=== PATIENT | male | born 1935 | race Caucasian/White ===

== ENCOUNTER 2016-12-15 12:03 | Inpatient (IN) ==
--- NOTE | 2016-12-15 13:34 | Emergency Department Note ---
Arrival - Arrival Chief Complaint: Extremity Injury Stated Complaint: LAC TO LEFT LEG ED Nursing Triage Note: States his left left hit a door resulting in a laceration on Wednesday. States family tried steri-stips and liquid bandage at home. States it does not look like it is healing and has adhesive is still in wound. [facility] sent pt to ED. Mode of Arrival: Wheelchair Limitations: No Limitations Source: Patient Time Seen by Provider: 12/15/16 13:19 - History of Present Illness HPI Narrative: This is an 81-year-old white male who states he hit his left leg on a door last Wednesday, and sustained a laceration to his left lower leg. He states that his family who were first responders put Steri-Strips on it and put and adhesive onto it and got adhesive down into the wound. He states that today it is not healing is very painful and red. He was seen at the [facility] and the [facility] clinic sent him to the emergency department. Onset (ago): day(s) (4) Severity: moderate Allergies/Adverse Reactions: Allergies Allergy/AdvReac Type Severity Reaction Status Date / Time Unable to Obtain Allergy Unverified 12/15/16 12:37 Home Medications: Home Medications Medication Instructions Recorded Confirmed Type Aspirin EC Tab 81 mg PO DAILY 12/15/16 12/15/16 History Atorvastatin Calcium 20 mg PO DAILY 12/15/16 12/15/16 History Cetirizine HCl [Cetirizine Tab] 10 mg PO DAILY PRN 12/15/16 12/15/16 History Ferrous Sulfate 325 mg PO DAILY 12/15/16 12/15/16 History Finasteride 5 mg PO DAILY 12/15/16 12/15/16 History Gabapentin 300 mg PO TID 12/15/16 12/15/16 History Hydroxychloroquine Sulfate 200 mg PO BID 12/15/16 12/15/16 History Metoprolol Tartrate 100 mg PO BID 12/15/16 12/15/16 History Niacin 1,000 mg PO QPM 12/15/16 12/15/16 History Omeprazole [Prilosec] 20 mg PO BID 12/15/16 12/15/16 History Oxybutynin Chloride [Oxybutynin 15 mg PO DAILY 12/15/16 12/15/16 History Chloride ER] Potassium Chloride 20 meq PO BID 12/15/16 12/15/16 History Tamsulosin [Flomax] 0.4 mg PO DAILY 12/15/16 12/15/16 History Verapamil HCl [Verapamil ER Tab] 240 mg PO DAILY 12/15/16 12/15/16 History metOLazone [Metolazone] 5 mg PO DAILY 12/15/16 12/15/16 History predniSONE TAB [PredniSONE] 4 mg PO DAILY 12/15/16 12/15/16 History Review of System - Review of System 12 point system: reviewed and no additional remarkable complaints except as stated - Review of System Constitutional: Present: as per HPI. Absent: fever Skin: Present: as per HPI, other (open laceration) Medical,Surgical,& Family Hx - Medical History Cardio: History of: Hypertension Endocrine: History of: Dyslipidemia Rheumatology: History of;: Rheumatoid Arthritis (Pt in personal power chair) Musculoskeletal: History of: Osteoporosis - Surgical History Cardiac Surgeries: Sugical HX of: Cardiac Catheterization (One stent per Dr Rock ) - Social History Smoking Status: Unknown if ever smoked Frequency of Alcohol Use: Unknown Type of Drug Use: Unknown Exam Vital Signs: Vital Signs Temperature 98.5 F 12/15/16 12:42 Pulse Rate 65 12/15/16 12:42 Respiratory Rate 18 12/15/16 12:42 Blood Pressure 123/69 12/15/16 12:42 O2 Sat by Pulse Oximetry 96 12/15/16 12:27 - General General appearance: in distress (mild) - Head Head exam: Present: atraumatic, normocephalic, normal inspection - Eye Eye exam: Present: normal appearance, PERRL, EOMI - ENT ENT exam: Present: normal exam - Neck Neck exam: Present: normal inspection, full ROM, trachea midline - Chest Chest inspection: Present: normal inspection, symmetric chest wall rise - Respiratory Respiratory exam: Present: normal lung sounds bilaterally - Cardiovascular Cardiovascular exam: Present: regular rate, normal rhythm, normal heart sounds - Abdominal Exam Abdominal exam: Present: soft, normal bowel sounds - Extremities Exam Extremities exam: Absent: normal inspection (the patient has an open 7-8 cm laceration to the left anterior leg with an associated cellulitis) - Back Exam Back exam: Present: normal inspection - Neurological Exam Neurological exam: Present: alert, oriented X3 - Psychiatric Psychiatric exam: Present: normal affect - Skin Skin exam: Present: warm, dry, intact Course - Consultations Consultation #1: I spoke with Dr. Woods about the patient and he will come down and see the patient and his ER room Time: 13:32 (Dr. Mccarty will take the patient to surgery and clean the wound out and admit him) Disposition Clinical Impression: Cellulitis, Laceration Case discussed with: patient Disposition: Still a Patient Time of Disposition: 13:45
[2016-12-15] MEDS ORDERED: ONDANSETRON 4 MG/2 ML VIAL IV PRN (13:47)
[2016-12-15] MEDS ORDERED: ACETAMINOPHEN 325 MG TABLET PO PRN (13:47)
[2016-12-15] MEDS ORDERED: MORPHINE 2 MG/1 ML SYRINGE IV PRN (13:47)
[2016-12-15] MEDS ORDERED: CLINDAMYCIN INJ 50 ML IV ONE (13:52)
--- NOTE | 2016-12-15 13:54 | General Surg History&Physical ---
Assessment and Plan (1) Cellulitis Status: Acute Assessment and plan: Impression: Cellulitis and infected wound of the left lower extremity. Plan: Patient needs opening of this wound with debridement of the nonviable tissue and drainage of any underlying fluid collection. We will plan for surgery today. I discussed the risk of the procedure including bleeding, infection, damage to surrounding structures, need for further surgery and he agrees. Will admit for IV antibiotics. Current Visit: Yes (2) Laceration Status: Acute Current Visit: Yes History of Present Illness Chief complaint: left leg pain and redness History of present illness: Mr. Van is a 81 year old male injured his left leg last week. Patient states that he was in his motorized wheelchair and open the car door and accidentally moved to chair forward scraping his left lower leg into the edge of the door. He sustained a laceration. His family applied liquid Band-Aid to the incision. Last night he noticed it becoming more red and this morning sought medical treatment. He denies any fever. He denies any shortness of breath or chest pain. Home Medications Medication Instructions Recorded Confirmed Type Aspirin EC Tab 81 mg PO DAILY 12/15/16 12/15/16 History Atorvastatin Calcium 20 mg PO DAILY 12/15/16 12/15/16 History Cetirizine HCl [Cetirizine Tab] 10 mg PO DAILY PRN 12/15/16 12/15/16 History Ferrous Sulfate 325 mg PO DAILY 12/15/16 12/15/16 History Finasteride 5 mg PO DAILY 12/15/16 12/15/16 History Gabapentin 300 mg PO TID 12/15/16 12/15/16 History Hydroxychloroquine Sulfate 200 mg PO BID 12/15/16 12/15/16 History Metoprolol Tartrate 100 mg PO BID 12/15/16 12/15/16 History Niacin 1,000 mg PO QPM 12/15/16 12/15/16 History Omeprazole [Prilosec] 20 mg PO BID 12/15/16 12/15/16 History Oxybutynin Chloride [Oxybutynin 15 mg PO DAILY 12/15/16 12/15/16 History Chloride ER] Potassium Chloride 20 meq PO BID 12/15/16 12/15/16 History Tamsulosin [Flomax] 0.4 mg PO DAILY 12/15/16 12/15/16 History Verapamil HCl [Verapamil ER Tab] 240 mg PO DAILY 12/15/16 12/15/16 History metOLazone [Metolazone] 5 mg PO DAILY 12/15/16 12/15/16 History predniSONE TAB [PredniSONE] 4 mg PO DAILY 12/15/16 12/15/16 History Allergies Allergy/AdvReac Type Severity Reaction Status Date / Time Unable to Obtain Allergy Unverified 12/15/16 12:37 Medical,Surgical,& Family Hx - Medical History Cardio: History of: Hypertension Endocrine: History of: Dyslipidemia Rheumatology: History of;: Rheumatoid Arthritis (Pt in personal power chair) Musculoskeletal: History of: Osteoporosis - Surgical History Cardiac Surgeries: Sugical HX of: Cardiac Catheterization (One stent per Dr Rock ) - Social History Smoking Status: Unknown if ever smoked Frequency of Alcohol Use: Unknown Type of Drug Use: Unknown Exam - Constitutional Vitals: Period Temp Pulse Resp BP Sys/Radford Pulse Ox Last 24 Hr 98.5 F-98.5 F 65-65 18-18 123-123/69-69 96 General appearance: no acute distress - Head Head exam: Present: normocephalic - ENT Mouth exam: Present: normal external inspection - Neck Neck exam: Present: normal inspection, trachea midline - Respiratory Respiratory exam: Present: clear to auscultation bilaterally - Cardiovascular Cardiovascular exam: Present: RRR - GI/Abdominal GI/Abdominal exam: Present: soft - Extremities Exam Extremities exam: Present: other (laceration along the left anterolateral lower leg with surrounding erythema that is nearly circumferential. There is some purulent fluid exuding from the wound base which is covered and liquid adhesive. There is nonviable tissue present.) - Neurological Exam Neurological exam: Present: alert, oriented X3 Speech: Present: normal - Skin Skin exam: Present: normal color 12 point system: reviewed and no additional remarkable complaints except as stated Quality Measures - VTE Contraindication to Pharmacological VTE Prophylaxis: High Risk of Bleeding
[2016-12-15] MEDS ORDERED: CLINDAMYCIN INJ 900 MG in PREMIX 1 EACH IV ONE (14:00)
[2016-12-15 14:41] LABS: Albumin 3.4 G/DL (3.4-5.0); Bilirubin,Total 0.8 MG/DL (0.2-1.0); Calcium 8.1 MG/DL (8.5-10.1); Osmolality,Calculated 282.4 MOS/KG (273-304); Total Protein 7.2 G/DL (6.4-8.3)
[2016-12-15] MEDS ORDERED: METOCLOPRAMIDE 10 MG/2 ML VIAL IV STA (14:54)
[2016-12-15] MEDS ORDERED: FAMOTIDINE 20 MG/2 ML VIAL IV STA (14:54)
[2016-12-15] MEDS ORDERED: METOCLOPRAMIDE 10 MG/2 ML VIAL ONE (14:59)
[2016-12-15] MEDS ORDERED: FAMOTIDINE 20 MG/2 ML VIAL IV ONE (15:00)
[2016-12-15 15:07] LABS: Basophils % 0.4 % (0.0-0.8); Eosinophils # 0.2 10*3/uL (0.0-0.87); Eosinophils % 2.2 % (0.00-10.9); Hematocrit 36.3 VOL% (42.0-52.0); Immature Granulocytes % 0.9 %; Immature Granulocytes Absolute 0.09 #; Lymphocytes # 1.5 10*3/uL (1.4-4.0); Lymphocytes % 14.2 % (21.2-54.2); Mean Corpuscular HGB Conc 33.1 GM/DL (32-36); Mean Corpuscular Hemoglobin 28 PG (27-34); Mean Platelet Volume 12.9 FL (9.6-12.0); Monocytes % 9.2 % (1.7-12.7); Neutrophils # 7.7 10*3/uL (1.4-7.4); Neutrophils % 73.1 % (38.7-73.9); Platelet Count 120 T/CUMM (130-400); Red Blood Count 4.32 MC/CUMM (3.8-5.5); Red Cell Distribution Width 13.8 % (9.3-17.3); White Blood Count 10.5 T/CUMM (4-12)
[2016-12-15] MEDS: CLINDAMYCIN INJ 900 MG in PREMIX 1 EACH IV SCH ×2 (16:32→22:35)
--- NOTE | 2016-12-15 16:39 | Operative Note ---
Date of procedure: 12/15/16 Pre-op diagnosis: traumatic infected laceration and wound of the left lower extremity Post-op diagnosis: same (with nonviable tissue) Procedure: Procedure performed: Excisional debridement of left lower leg including nonviable skin and subcutaneous tissue. Area debrided was 5 x 1.5 cm Procedure in detail: After informed consent was obtained, patient was taken operating suite and laid supine operating table. After monitored anesthesia was initiated the left lower extremity was prepped and draped in usual sterile fashion. After procedural pause local anesthetic was infiltrated in the skin and subcutaneous tissue alongside the laceration. Blunt finger dissection was used to open up the laceration and identified that it tracked laterally in the subcutaneous tissue. This pocket was opened up but there was no significant purulence. There was some old clot and nonviable skin and subcutaneous tissue which was all removed with a dermal curette. The wound was irrigated and suction there was good hemostasis. I then packed the wound with 4 x 4 gauze. Sterile dressings applied and the patient tolerated the procedure well. Anesthesia: MAC, local Surgeon / Physician: John Woods Estimated blood loss: other (less than 10 mL) Specimens: none sent Condition: stable Disposition: PACU Results - Labs CBC & BMP: 12/15/16 15:03 12/15/16 13:56 Discharge Plan - Discharge Medications No Action Hydroxychloroquine Sulfate 200 mg PO BID Tamsulosin [Flomax] 0.4 mg PO DAILY Omeprazole [Prilosec] 20 mg PO BID Verapamil HCl [Verapamil ER Tab] 240 mg PO DAILY Aspirin EC Tab 81 mg PO DAILY predniSONE TAB [PredniSONE] 4 mg PO DAILY Finasteride 5 mg PO DAILY Oxybutynin Chloride [Oxybutynin Chloride ER] 15 mg PO DAILY Cetirizine HCl [Cetirizine Tab] 10 mg PO DAILY PRN PRN Reason: ALERGIES Gabapentin 300 mg PO TID Niacin 1,000 mg PO QPM Potassium Chloride 20 meq PO BID Atorvastatin Calcium 20 mg PO DAILY metOLazone [Metolazone] 5 mg PO DAILY Metoprolol Tartrate 100 mg PO BID Ferrous Sulfate 325 mg PO DAILY - Follow Up or Referral - Forms/Instructions
[2016-12-15] MEDS ORDERED: CETIRIZINE 10 MG TABLET PO PRN (17:33)
[2016-12-15] MEDS ORDERED: TAMSULOSIN 0.4 MG CAPSULE PO SCH (19:00)
--- NOTE | 2016-12-15 20:30 | Anesthesia ---
Anesthesia Post OP - Post Ansesthetic Evaluation Patient seen in post op: Yes Resp: within normal limits CV: within normal limits Mental: within normal limits Temp: within normal limits [id number]: within normal limits Nausea and Vomiting: within normal limits Pain: within normal limits
--- NOTE | 2016-12-15 20:31 | Hospitalist Consult Note ---
Assessment and Plan (1) Hypertension Status: Chronic Assessment and plan: Continue home medications for hypertension and monitor blood pressure Current Visit: Yes Qualifiers: Hypertension type: essential hypertension Qualified Code(s): I10 - Essential (primary) hypertension (2) Osteoarthritis Status: Chronic Current Visit: Yes Qualifiers: Osteoarthritis location: multiple joints Osteoarthritis type: primary Qualified Code(s): M15.0 - Primary generalized (osteo)arthritis (3) Obesity Status: Chronic Current Visit: Yes Qualifiers: Obesity type: due to excess calories Obesity severity: morbid Qualified Code(s): E66.01 - Morbid (severe) obesity due to excess calories (4) Cellulitis Status: Acute Assessment and plan: Continue IV antibiotics per surgery. Currently on clindamycin. Current Visit: Yes Qualifiers: Site of cellulitis: extremity Site of cellulitis of extremity: lower extremity Laterality: left Qualified Code(s): L03.116 - Cellulitis of left lower limb (5) Laceration Status: Acute Assessment and plan: Status post surgical debridement. Wound dressing changes per surgery. Continue IV antibiotics. Current Visit: Yes History of Present Illness - Data of Consult Patient: new to practice Consult date: 12/15/16 Requesting Physician: John Woods - Consult Narrative Reason for consult: medical mgmt htn History of present illness: Mr. Van is a 81 year old male admitted this afternoon from the emergency department with left lower extremity laceration with cellulitis requiring debridement in the operating room and IV antibiotics. Patient reports sustaining a laceration to his leg caused by a car door due to malfunction with his wheelchair. It was covered with Steri-Strips and liquid Band-Aid. This morning it became painful and red and he came to the emergency department for further evaluation. He was admitted to the general surgeon service for debridement and IV antibiotic therapy. I was consult to review the patient's medical history and resume his home medications as well as manage any medical complications related to his acute illness. CC: John Woods MD Left lower extremity laceration with infection and pain - Home Medications and Allergies Home Medications: Home Medications Medication Instructions Recorded Confirmed Type Aspirin EC Tab 81 mg PO DAILY 12/15/16 12/15/16 History Atorvastatin Calcium 20 mg PO DAILY 12/15/16 12/15/16 History Cetirizine HCl [Cetirizine Tab] 10 mg PO DAILY PRN 12/15/16 12/15/16 History Ferrous Sulfate 325 mg PO DAILY 12/15/16 12/15/16 History Finasteride 5 mg PO DAILY 12/15/16 12/15/16 History Gabapentin 300 mg PO TID 12/15/16 12/15/16 History Hydroxychloroquine Sulfate 200 mg PO BID 12/15/16 12/15/16 History Metoprolol Tartrate 100 mg PO BID 12/15/16 12/15/16 History Omeprazole [Prilosec] 20 mg PO BID 12/15/16 12/15/16 History Oxybutynin Chloride [Oxybutynin 15 mg PO DAILY 12/15/16 12/15/16 History Chloride ER] Potassium Chloride 20 meq PO BID 12/15/16 12/15/16 History Tamsulosin [Flomax] 0.4 mg PO QPM 12/15/16 12/15/16 History Verapamil HCl [Verapamil ER Tab] 240 mg PO DAILY 12/15/16 12/15/16 History metOLazone [Metolazone] 5 mg PO DAILY 12/15/16 12/15/16 History predniSONE TAB [PredniSONE] 4 mg PO DAILY 12/15/16 12/15/16 History Allergies/Adverse Reactions: Allergies Allergy/AdvReac Type Severity Reaction Status Date / Time codeine Allergy Mild RASH Verified 12/15/16 20:32 gemfibrozil Allergy Mild Difficulty Verified 12/15/16 20:32 Breathing Medical,Surgical,& Family Hx - Medical History Cardio: History of: CAD, Hypertension, Valvular Heart Disease Endocrine: History of: Dyslipidemia Rheumatology: History of;: Rheumatoid Arthritis (Pt in personal power chair) Respiratory: History of: Obstructive Sleep Apnea (Cpap) Musculoskeletal: History of: Osteoporosis Hematology: History of: Clotting Problems (DVT) - Surgical History Cardiac Surgeries: Sugical HX of: Cardiac Catheterization (One stent per Dr Rock ) HEENT Surgeries: Surgical HX of: Eye Surgery (bilateral cataracts) Orthopedic Surgeries: Surgical HX of;: Orthopedic Surgery (Bilateral shoulder), Spinal Surgery (neck and lower back), Total Knee Replacement (right) - Family History Family History: Reports;: Family Heart Disease (parents), Family Hypertension, Family Stroke (grandfather) - Social History Smoking Status: Never smoker Frequency of Alcohol Use: None Type of Drug Use: Unknown 12 point system: reviewed and no additional remarkable complaints except as stated - Constitutional Constitutional: Present: as per HPI Exam - Constitutional Vitals: Period Temp Pulse Resp BP Sys/Radford Pulse Ox Last 24 Hr 97.0 F-97.4 F 56-78 16-59 94-133/49-79 91-100 General appearance: no acute distress, morbidly obese - Head Head exam: Present: normal inspection, normocephalic, atraumatic - Eye Eye exam: Present: EOMI Pupils: Present: JOSIE - ENT ENT exam: Present: normal exam - Neck Neck exam: Present: normal inspection - Respiratory Respiratory exam: Present: clear to auscultation bilaterally - Cardiovascular Cardiovascular exam: Present: regular rate and rhythm - GI/Abdominal GI/Abdominal exam: Present: normal bowel sounds, soft - Extremities Exam Extremities exam: Present: edema, other (left lower extremity with bandage in place with serosanguineous drainage noted. Bandage was not removed postoperatively by me.) - Back Exam Back exam: Present: normal inspection - Neurological Exam Neurological exam: Present: alert, oriented X3 - Psychiatric Psychiatric exam: Present: normal affect, normal mood - Skin Skin exam: Present: normal color, warm Results - Labs CBC & BMP: 12/15/16 15:03 12/15/16 13:56 Lab Results: I have reviewed the past 24 hour labs Quality Measures - VTE Contraindication to Pharmacological VTE Prophylaxis: High Risk of Bleeding
[2016-12-15] MEDS: GABAPENTIN 300 MG CAPSULE PO SCH (21:15)
[2016-12-15] MEDS: HYDROXYCHLOROQUINE 200 MG TABLET PO SCH (21:15)
[2016-12-15] MEDS: METOPROLOL TARTRATE 100 MG TABLET PO SCH (21:15)
[2016-12-15] MEDS: POTASSIUM CHLORIDE 20 MEQ TABLET PO SCH (21:15)
[2016-12-16] MEDS: CLINDAMYCIN INJ 900 MG in PREMIX 1 EACH IV SCH ×2 (03:47→10:08)
[2016-12-16 05:03] LABS: Basophils % 0.3 % (0.0-0.8); Eosinophils # 0.2 10*3/uL (0.0-0.87); Eosinophils % 2.3 % (0.00-10.9); Hematocrit 30.3 VOL% (42.0-52.0); Hemoglobin 10.1 GM/DL (14.0-18.0); Immature Granulocytes % 0.5 %; Immature Granulocytes Absolute 0.04 #; Lymphocytes # 1.2 10*3/uL (1.4-4.0); Lymphocytes % 14.9 % (21.2-54.2); Mean Corpuscular HGB Conc 33.3 GM/DL (32-36); Mean Corpuscular Hemoglobin 28 PG (27-34); Monocytes # 0.8 10*3/uL (0.11-0.8); Monocytes % 10.5 % (1.7-12.7); Neutrophils # 5.7 10*3/uL (1.4-7.4); Neutrophils % 71.5 % (38.7-73.9); Platelet Count 182 T/CUMM (130-400); Red Blood Count 3.65 MC/CUMM (3.8-5.5); Red Cell Distribution Width 13.9 % (9.3-17.3)
[2016-12-16] MEDS ORDERED: FINASTERIDE 5 MG TABLET PO SCH (09:00)
[2016-12-16] MEDS ORDERED: predniSONE 1 MG TABLET PO SCH (09:00)
[2016-12-16] MEDS ORDERED: VERAPAMIL SR 240 MG TABLET PO SCH (09:00)
[2016-12-16] MEDS ORDERED: ASPIRIN EC 81 MG TABLET PO SCH (09:00)
[2016-12-16] MEDS ORDERED: metOLazone 5 MG TABLET PO SCH (09:00)
[2016-12-16] MEDS ORDERED: FERROUS SULFATE 325 MG TABLET PO SCH (09:00)
[2016-12-16] MEDS: METOPROLOL TARTRATE 100 MG TABLET PO SCH (10:04)
[2016-12-16] MEDS: POTASSIUM CHLORIDE 20 MEQ TABLET PO SCH (10:04)
[2016-12-16] MEDS: GABAPENTIN 300 MG CAPSULE PO SCH (10:04)
--- NOTE | 2016-12-16 10:04 | Discharge Summary ---
Hospital Course - Hospital Course Hospital Course: 81[address] earl w traumatic infected laceration and wound of the LLE. he was taken to the OR on 12/15 for excisional debridement. redness is improved today and wound is fairly clean. pt and are eager to go home. hospital medicine followed pt for his medical mgt. will write wound orders and dc pt home on abx and pain meds. wound instructions were given to pt and his and he states his sons are first responders and can do dressing changes. follow up w dr earl next wk. - Time spent with patient Time with patient DS: Less than 30 minutes Discharge Plan - Discharge Data Disposition: Disch To Home/Self Care Condition at Discharge: Stable Discharge Diet: advance to your usual diet Activity: increase activity as tolerated Hygiene: may shower Driving: other (no driving if taking pain pills) Contact your physician if you experience:: fever over 101, Redness or swelling Wound / Dressing Care Instructions: pull packing and shower daily. wash wound w hibiclens and rinse w water, irrigate w dakins and pack w dakins moistened gauze to distal wound, proximal wound will need 1/4inch iodoform packing. cover w dry gauze, ABD pad, kerlix and adis from toes to knee. - Discharge Medications New HYDROcodone/ACETAMIN 7.5-325 [[place] 7.5-325] 1 tablet PO Q4H PRN #30 tablet PRN Reason: Pain Moderate (4-7) Clindamycin Cap [Cleocin Cap] 300 mg PO QID #28 capsule Continue Hydroxychloroquine Sulfate 200 mg PO BID Tamsulosin [Flomax] 0.4 mg PO QPM Omeprazole [Prilosec] 20 mg PO BID Verapamil HCl [Verapamil ER Tab] 240 mg PO DAILY Aspirin EC Tab 81 mg PO DAILY predniSONE TAB [PredniSONE] 4 mg PO DAILY Finasteride 5 mg PO DAILY Oxybutynin Chloride [Oxybutynin Chloride ER] 15 mg PO DAILY Cetirizine HCl [Cetirizine Tab] 10 mg PO DAILY PRN PRN Reason: ALERGIES Gabapentin 300 mg PO TID Potassium Chloride 20 meq PO BID Atorvastatin Calcium 20 mg PO DAILY metOLazone [Metolazone] 5 mg PO DAILY Metoprolol Tartrate 100 mg PO BID Ferrous Sulfate 325 mg PO DAILY - Follow Up or Referral Follow Up: John Earl MD [Physician] - 1 Week - Forms/Instructions Exam - Constitutional Vitals: Period Temp Pulse Resp BP Sys/Radford Pulse Ox Last 24 Hr 97.0 F-98.1 F 56-84 16-59 94-133/49-79 91-100 Discharge Results Procedures and tests throughout hospitalization: Pending Orders 12/15/16 13:56 Blood Culture Stat Labs on day of discharge: Labs from last 24 hours 12/16/16 12/15/16 12/15/16 04:40 15:03 13:56 WBC 8.0 10.5 RBC 3.65 L 4.32 Hgb 10.1 L 12.0 L Hct 30.3 L 36.3 L MCV 83.0 L 84.0 L MCH 28 28 MCHC 33.3 33.1 RDW 13.9 13.8 Plt Count 182 D 120 L MPV 10.0 12.9 H Neut % (Auto) 71.5 73.1 Lymph % (Auto) 14.9 L 14.2 L [place] % (Auto) 10.5 9.2 Eos % (Auto) 2.3 2.2 Baso % (Auto) 0.3 0.4 Neut # (Auto) 5.7 7.7 H Lymph # (Auto) 1.2 L 1.5 [place] # (Auto) 0.8 1.0 H Eos # (Auto) 0.2 0.2 Baso # (Auto) 0.0 0.0 Immature Gran % 0.5 0.9 Nucleated RBC % 0.0 0.0 Immature Gran # 0.04 0.09 Nucleated RBCs # 0.00 0.00 Sodium 140 Potassium 4.0 Chloride 103 Carbon Dioxide 29 Anion Gap 12.0 BUN 24 H Creatinine 2.00 H GFR Calculation 41 BUN/Creatinine Ratio 12.00 Glucose 95 Calculated Osmolality 282.4 Calcium 8.1 L Total Bilirubin 0.80 AST 19 ALT 21 Alkaline Phosphatase 86 Total Protein 7.2 Albumin 3.4 Globulin 3.8 H Albumin/Globulin Ratio 0.8 L DS: Provider Date of admission: 12/15/16 13:47 Primary care physician: Fernando Rodrigues MD Attending physician on admission: John Earl MD Consults: 12/15/16 16:00 Consult to Pharmacy [CONS] Routine Reason for Pharmacy Consult: Adjust Meds Renal Funct 12/15/16 16:52 Consult to Physician [CONS] Routine Comment: medical materials management supervisor Provider: Consult to Specialist Group: Hospitalist Person Notified: DR MICHELLE Date Notified: 12/15/16 Time Notified: 16:52 Discharging clinician: ALEKSANDR Pena Expected date of discharge: 12/16/16
[2016-12-16] MEDS: HYDROXYCHLOROQUINE 200 MG TABLET PO SCH (10:09)
[2016-12-16] MEDS ORDERED: SODIUM HYPOCHLORITE 0.25% IRRIG 473 ML BOTTLE TOP SCH (12:30)
--- NOTE | 2016-12-16 13:51 | General Surgery Progress Note ---
Assessment and Plan (1) Cellulitis Status: Acute Assessment and plan: Impression: Cellulitis and infected wound of the left lower extremity. Plan: Discharge today. Patient will follow up next week. Says his family will help him with packing. Discharge and wound care instructions were given. Current Visit: Yes Qualifiers: Site of cellulitis: extremity Site of cellulitis of extremity: lower extremity Laterality: left Qualified Code(s): L03.116 - Cellulitis of left lower limb (2) Laceration Status: Acute Current Visit: Yes Subjective Patient reports: Present: no new complaints, feels better Exam - Constitutional Vitals: Period Temp Pulse Resp BP Sys/[place]ford Pulse Ox Last 24 Hr 97.0 F-98.1 F 56-84 16-59 94-133/49-79 91-100 - Extremities Exam Extremities exam: Present: other (packing removed. A left leg wound looks clean. It no bleeding. There is no purulence or nonviable tissue. Erythema has nearly completely resolved.) Results - Labs CBC & BMP: 12/16/16 04:40 12/15/16 13:56 Quality Measures - VTE Contraindication to Pharmacological VTE Prophylaxis: High Risk of Bleeding Specialty Discharge - Follow Up or Referrals Follow up with: John Woods MD [Physician] - 12/23/16 10:30 am
[2016-12-16 16:20] VITALS: BP 157/76
[2016-12-16] MEDS ORDERED: ATORVASTATIN 20 MG TABLET PO SCH (21:00)
[2016-12-16] MEDS ORDERED: OXYBUTYNIN XL 15 MG TABLET PO SCH (21:00)
[2016-12-16] MEDS ORDERED: PANTOPRAZOLE 40 MG TABLET PO SCH (21:00)
== END 2016-12-16 14:40 | disposition home health service (06) | DRG 571 ==
LOC: N.ED 12:03 → N.EDINP 13:47 → N.3E 15:10
PROVIDERS: ADMIT Surgery; ATTEND Surgery

== ENCOUNTER 2019-10-14 08:25 | Inpatient (IN) ==
[2019-10-14] MEDS ORDERED: NOREPINEPHRINE 4 MG/4 ML VIAL IV ONE ×2 (08:33→15:41)
[2019-10-14] MEDS: NOREPINEPHRINE 8 MG in SODIUM CHLORIDE 0.9% 242 ML IV PRN ×2 (08:35→15:48)
[2019-10-14] MEDS ORDERED: VANCOMYCIN INJ 1,500 MG in SODIUM CHLORIDE 0.9% 500 ML IV STA (08:39)
[2019-10-14] MEDS ORDERED: NOREPINEPHRINE 16 MG in SODIUM CHLORIDE 0.9% 234 ML IV PRN (08:50)
[2019-10-14 09:14] LABS: Basophils # 0.1 10*3/uL (0.0-0.2); Basophils % 0.2 % (0.0-0.8); Hematocrit 27.1 VOL% (42.0-52.0); Hemoglobin 8.8 GM/DL (14.0-18.0); INR 1.2; Immature Granulocytes % 1.9 %; Immature Granulocytes Absolute 0.68 #; Lymphocytes # 0.6 10*3/uL (1.4-4.0); Lymphocytes % 1.7 % (21.2-54.2); Mean Corpuscular HGB Conc 32.5 GM/DL (32-36); Mean Corpuscular Volume 85.5 FL (87-102); Mean Platelet Volume 9.8 FL (9.6-12.0); Monocytes % 3.6 % (1.7-12.7); Neutrophils % 92.6 % (38.7-73.9); Platelet Count 199 T/CUMM (130-400); Red Blood Count 3.17 MC/CUMM (3.8-5.5); Red Cell Distribution Width 15.4 % (9.3-17.3); White Blood Count 36.4 T/CUMM (4-12)
[2019-10-14 09:17] LABS: PT Patient Result 12.9 SECS (9.6-12.2)
[2019-10-14 09:18] LABS: Band Neutrophils 42 % (0-10); Lymphocytes 2 % (20-55); Segmented Neutrophils 51 % (50-85); Total Cells Counted 100
[2019-10-14 09:19] LABS: Anisocytosis 1+; Platelet Estimate Normal; Poikilocytosis 1+; Polychromasia Slight
[2019-10-14 09:21] LABS: ABG HCO3 16.4 MMOL/L (20-26); ABG Oxygen Saturation 92.6 % (95-100); ABG PCO2 35.6 MM HG (35-48); ABG PH 7.267 (7.35-7.45); ABG PO2 75.3 MM HG (80-95); ABG TCO2 15.2 MMOL/L (23-27); Allen Test Positive
[2019-10-14 09:39] LABS: Albumin 1.9 G/DL (3.4-5.0); Bilirubin,Total 1.2 MG/DL (0.2-1.0); Calcium 7.2 MG/DL (8.5-10.1); Osmolality,Calculated 315.3 MOS/KG (273-304); Total Protein 6.6 G/DL (6.4-8.3)
[2019-10-14 09:41] LABS: Apearance,Urine CLOUDY (Clear); Bacteria,Urine Occasional /HPF (Few); Bilirubin,Urine Negative (Negative); Blood, Urine Moderate mg/dL (Negative); Glucose,Urine (UA) Negative (Negative); Ketones,Urine Negative (Negative); Mucus,Urine Moderate /LPF (Occasional); Nitrite,Urine Negative (Negative); Protein,Urine 100 MG/DL; RBC,Urine 120 /HPF (0-4); Squamous Epithelial Cell,Urine Occasional /HPF (0-10); Urine Color Yellow (Yellow); Urine Specific Gravity 1.008 (1.001-1.035); Urine Urobilinogen < 2.0 EU/DL (0.2-1.0); WBC,Urine 2828 /HPF (0-6)
[2019-10-14] MEDS ORDERED: ONDANSETRON 4 MG/2 ML VIAL IV PRN (09:43)
[2019-10-14] MEDS ORDERED: ALBUTEROL/IPRATROPIUM 3 ML NEB RESP TX PRN (09:48)
[2019-10-14] MEDS ORDERED: BUDESONIDE 0.5 MG/2 ML NEB RESP TX PRN (10:40)
[2019-10-14] MEDS ORDERED: VANCOMYCIN INJ 1,750 MG in SODIUM CHLORIDE 0.9% 500 ML IV PRN (10:54)
[2019-10-14] MEDS: SODIUM CHLORIDE 0.9% 1,000 ML IV SCH ×2 (11:21→21:15)
[2019-10-14] MEDS: PIPERACILLIN/TAZOBACTAM 3,375 MG in SODIUM CHLORIDE 0.9% 100 ML IV SCH ×2 (11:32→23:44)
[2019-10-14] MEDS: ENOXAPARIN 30 MG/0.3 ML SYRINGE SUBCUT SCH (11:32)
[2019-10-14] MEDS: DOCUSATE SODIUM 100 MG CAPSULE PO SCH (21:14)
[2019-10-15] MEDS: NOREPINEPHRINE 8 MG in SODIUM CHLORIDE 0.9% 242 ML IV PRN (01:32)
[2019-10-15] MEDS: SODIUM CHLORIDE 0.9% 1,000 ML IV SCH ×3 (04:50→20:16)
[2019-10-15 06:06] LABS: Basophils # 0.1 10*3/uL (0.0-0.2); Basophils % 0.2 % (0.0-0.8); Hematocrit 27.9 VOL% (42.0-52.0); Hemoglobin 9.1 GM/DL (14.0-18.0); Immature Granulocytes Absolute 0.74 #; Lymphocytes # 0.8 10*3/uL (1.4-4.0); Lymphocytes % 2.1 % (21.2-54.2); Mean Corpuscular HGB Conc 32.6 GM/DL (32-36); Mean Platelet Volume 10.7 FL (9.6-12.0); Monocytes % 4.3 % (1.7-12.7); Neutrophils % 91.4 % (38.7-73.9); Platelet Count 213 T/CUMM (130-400); Red Blood Count 3.32 MC/CUMM (3.8-5.5); Red Cell Distribution Width 15.7 % (9.3-17.3); White Blood Count 36.3 T/CUMM (4-12)
[2019-10-15 06:23] LABS: Calcium 7.5 MG/DL (8.5-10.1); Osmolality,Calculated 328.3 MOS/KG (273-304)
[2019-10-15 06:27] LABS: Band Neutrophils 19 % (0-10); Lymphocytes 3 % (20-55); Segmented Neutrophils 72 % (50-85); Total Cells Counted 100
[2019-10-15 06:28] LABS: Anisocytosis 1+; Burr Cells Few; Platelet Estimate Normal; Poikilocytosis Slight
[2019-10-15 06:29] LABS: Spherocytes Few
[2019-10-15] MEDS ORDERED: VANCOMYCIN INJ 1,750 MG in SODIUM CHLORIDE 0.9% 500 ML IV PRN (08:59)
[2019-10-15] MEDS: DOCUSATE SODIUM 100 MG CAPSULE PO SCH ×2 (09:22→21:00)
[2019-10-15] MEDS ORDERED: VANCOMYCIN INJ 1,750 MG in SODIUM CHLORIDE 0.9% 500 ML IV ONE (10:00)
[2019-10-15] MEDS: PANTOPRAZOLE 40 MG VIAL IV SCH (11:10)
[2019-10-15] MEDS: PIPERACILLIN/TAZOBACTAM 3,375 MG in SODIUM CHLORIDE 0.9% 100 ML IV SCH (11:11)
[2019-10-15] MEDS: ENOXAPARIN 30 MG/0.3 ML SYRINGE SUBCUT SCH (11:11)
[2019-10-15] MEDS ORDERED: MEROPENEM 2,000 MG in SODIUM CHLORIDE 0.9% 100 ML IV SCH (14:30)
[2019-10-15] MEDS: MEROPENEM 500 MG in SODIUM CHLORIDE 0.9% 100 ML IV SCH (14:58)
[2019-10-15] MEDS ORDERED: KETOROLAC 15 MG/1 ML VIAL IV ONE (20:49)
[2019-10-16] MEDS: MEROPENEM 500 MG in SODIUM CHLORIDE 0.9% 100 ML IV SCH ×2 (03:17→16:47)
[2019-10-16 04:56] LABS: Basophils % 0.2 % (0.0-0.8); Eosinophils # 0.1 10*3/uL (0.0-0.87); Eosinophils % 0.4 % (0.00-10.9); Hematocrit 23.9 VOL% (42.0-52.0); Hemoglobin 7.6 GM/DL (14.0-18.0); Immature Granulocytes % 1.9 %; Immature Granulocytes Absolute 0.42 #; Lymphocytes # 1.1 10*3/uL (1.4-4.0); Lymphocytes % 5.1 % (21.2-54.2); Mean Corpuscular HGB Conc 31.8 GM/DL (32-36); Mean Corpuscular Volume 86.3 FL (87-102); Mean Platelet Volume 10.3 FL (9.6-12.0); Monocytes % 6.8 % (1.7-12.7); Neutrophils % 85.6 % (38.7-73.9); Platelet Count 179 T/CUMM (130-400); Red Blood Count 2.77 MC/CUMM (3.8-5.5); Red Cell Distribution Width 15.8 % (9.3-17.3); White Blood Count 22.2 T/CUMM (4-12)
[2019-10-16 05:08] LABS: Calcium 7.1 MG/DL (8.5-10.1); Osmolality,Calculated 324.6 MOS/KG (273-304)
[2019-10-16 05:16] LABS: Band Neutrophils 3 % (0-10); Burr Cells Slight; Hypochromasia 1+; Lymphocytes 5 % (20-55); Ovalocytes Slight; Platelet Estimate Adequate; Segmented Neutrophils 88 % (50-85); Total Cells Counted 100
[2019-10-16] MEDS: SODIUM CHLORIDE 0.9% 1,000 ML IV SCH ×4 (05:41→21:13)
[2019-10-16] MEDS ORDERED: SODIUM CHLORIDE 0.9% 1,000 ML IV PRN (06:59)
[2019-10-16] MEDS ORDERED: FUROSEMIDE 40 MG/4 ML VIAL IV ONE (07:01)
[2019-10-16] MEDS: DOCUSATE SODIUM 100 MG CAPSULE PO SCH ×2 (08:23→21:14)
[2019-10-16] MEDS: PANTOPRAZOLE 40 MG VIAL IV SCH (08:23)
[2019-10-16] MEDS: ENOXAPARIN 30 MG/0.3 ML SYRINGE SUBCUT SCH (11:27)
[2019-10-16 18:21] LABS: Hematocrit 31.3 VOL% (42.0-52.0); Hemoglobin 10.3 GM/DL (14.0-18.0)
[2019-10-16] MEDS ORDERED: VANCOMYCIN INJ 1,750 MG in SODIUM CHLORIDE 0.9% 500 ML IV ONE (21:00)
[2019-10-16] MEDS: MENTHOL/ZINC OXIDE OINT 71 GM JAR TOP SCH (21:14)
[2019-10-16] MEDS: POTASSIUM CHLORIDE RIDER 10 MEQ in PREMIX 1 EACH IV PRN ×3 (21:29→23:29)
[2019-10-17] MEDS: POTASSIUM CHLORIDE RIDER 10 MEQ in PREMIX 1 EACH IV PRN ×2 (00:57→01:57)
[2019-10-17] MEDS: MEROPENEM 500 MG in SODIUM CHLORIDE 0.9% 100 ML IV SCH ×2 (02:51→13:59)
[2019-10-17] MEDS: SODIUM CHLORIDE 0.9% 1,000 ML IV SCH ×5 (05:15→21:20)
[2019-10-17 05:48] LABS: Basophils # 0.1 10*3/uL (0.0-0.2); Basophils % 0.4 % (0.0-0.8); Eosinophils # 0.4 10*3/uL (0.0-0.87); Eosinophils % 2.5 % (0.00-10.9); Hematocrit 30.3 VOL% (42.0-52.0); Hemoglobin 9.9 GM/DL (14.0-18.0); Immature Granulocytes Absolute 0.55 #; Lymphocytes # 1.3 10*3/uL (1.4-4.0); Lymphocytes % 9.5 % (21.2-54.2); Mean Corpuscular HGB Conc 32.7 GM/DL (32-36); Mean Corpuscular Volume 85.8 FL (87-102); Mean Platelet Volume 10.7 FL (9.6-12.0); Monocytes % 7.1 % (1.7-12.7); Neutrophils % 76.5 % (38.7-73.9); Platelet Count 179 T/CUMM (130-400); Red Blood Count 3.53 MC/CUMM (3.8-5.5); Red Cell Distribution Width 15.9 % (9.3-17.3); White Blood Count 13.7 T/CUMM (4-12)
[2019-10-17 06:13] LABS: Band Neutrophils 1 % (0-10); Eosinophils 4 % (0-10); Lymphocytes 5 % (20-55); Segmented Neutrophils 81 % (50-85); Total Cells Counted 100
[2019-10-17 06:14] LABS: Anisocytosis Slight; Microcytosis 1+; Platelet Estimate Normal
[2019-10-17 06:15] LABS: Ovalocytes Slight
[2019-10-17 06:27] LABS: Calcium 7.3 MG/DL (8.5-10.1); Osmolality,Calculated 315.8 MOS/KG (273-304)
[2019-10-17] MEDS: MENTHOL/ZINC OXIDE OINT 71 GM JAR TOP SCH ×4 (09:05→20:43)
[2019-10-17] MEDS: PANTOPRAZOLE 40 MG VIAL IV SCH (09:05)
[2019-10-17] MEDS: DOCUSATE SODIUM 100 MG CAPSULE PO SCH ×3 (09:05→20:43)
[2019-10-17] MEDS ORDERED: MAGNESIUM SULF RIDER 2 GM in PREMIX 1 EACH IV ONE (10:21)
[2019-10-17] MEDS: ENOXAPARIN 30 MG/0.3 ML SYRINGE SUBCUT SCH (11:20)
[2019-10-17] MEDS: ACETAMINOPHEN 325 MG TABLET PO PRN (17:00)
[2019-10-17] MEDS ORDERED: PIPERACILLIN/TAZOBACTAM 4,500 MG in SODIUM CHLORIDE 0.9% 100 ML IV SCH (19:30)
[2019-10-17] MEDS: PIPERACILLIN/TAZOBACTAM 3,375 MG in SODIUM CHLORIDE 0.9% 100 ML IV SCH (20:43)
[2019-10-18] MEDS: SODIUM CHLORIDE 0.9% 1,000 ML IV SCH (03:44)
[2019-10-18 05:57] LABS: Basophils # 0.1 10*3/uL (0.0-0.2); Basophils % 0.6 % (0.0-0.8); Eosinophils # 0.4 10*3/uL (0.0-0.87); Eosinophils % 3.6 % (0.00-10.9); Hematocrit 32.3 VOL% (42.0-52.0); Hemoglobin 10.6 GM/DL (14.0-18.0); Immature Granulocytes % 8.1 %; Immature Granulocytes Absolute 0.88 #; Lymphocytes # 1.4 10*3/uL (1.4-4.0); Lymphocytes % 13.2 % (21.2-54.2); Mean Corpuscular HGB Conc 32.8 GM/DL (32-36); Mean Corpuscular Volume 85.9 FL (87-102); Mean Platelet Volume 10.4 FL (9.6-12.0); Monocytes % 7.4 % (1.7-12.7); Neutrophils % 67.1 % (38.7-73.9); Platelet Count 184 T/CUMM (130-400); Red Blood Count 3.76 MC/CUMM (3.8-5.5); Red Cell Distribution Width 15.9 % (9.3-17.3); White Blood Count 10.9 T/CUMM (4-12)
[2019-10-18 06:24] LABS: Eosinophils 3 % (0-10); Hypochromasia 1+; Lymphocytes 11 % (20-55); Ovalocytes Slight; Platelet Estimate Adequate; Segmented Neutrophils 78 % (50-85); Total Cells Counted 100
[2019-10-18 06:25] LABS: Microcytosis 1+
[2019-10-18 06:32] LABS: Albumin 1.8 G/DL (3.4-5.0); Bilirubin,Total 0.7 MG/DL (0.2-1.0); Calcium 7.6 MG/DL (8.5-10.1); Osmolality,Calculated 311.8 MOS/KG (273-304); Risk Ratio 4.18
[2019-10-18] MEDS ORDERED: MAGNESIUM SULF RIDER 2 GM in PREMIX 1 EACH IV PRN (08:55)
[2019-10-18] MEDS: POTASSIUM CHLORIDE RIDER 10 MEQ in PREMIX 1 EACH IV SCH ×2 (09:53→14:33)
[2019-10-18] MEDS: PANTOPRAZOLE 40 MG VIAL IV SCH (09:53)
[2019-10-18] MEDS: DOCUSATE SODIUM 100 MG CAPSULE PO SCH ×2 (09:53→21:26)
[2019-10-18] MEDS: PIPERACILLIN/TAZOBACTAM 3,375 MG in SODIUM CHLORIDE 0.9% 100 ML IV SCH ×2 (09:53→21:24)
[2019-10-18] MEDS: MENTHOL/ZINC OXIDE OINT 71 GM JAR TOP SCH ×2 (10:12→21:26)
[2019-10-18] MEDS: MAGNESIUM SULF INJ 2 GM, POTASSIUM CHLORIDE INJ 20 MEQ in SODIUM CHLORIDE 0.9% 1,000 ML IV SCH (11:06)
[2019-10-18] MEDS: ENOXAPARIN 30 MG/0.3 ML SYRINGE SUBCUT SCH (11:12)
[2019-10-18] MEDS: GABAPENTIN 600 MG TABLET PO SCH ×2 (12:50→17:02)
[2019-10-18] MEDS: TAMSULOSIN 0.4 MG CAPSULE PO SCH (17:02)
[2019-10-18] MEDS: METOPROLOL TARTRATE 100 MG TABLET PO SCH (17:03)
[2019-10-18] MEDS: NIACIN ER 500 MG TABLET PO SCH (18:30)
[2019-10-18] MEDS: ATORVASTATIN 20 MG TABLET PO SCH (21:26)
[2019-10-19] MEDS: MAGNESIUM SULF INJ 2 GM, POTASSIUM CHLORIDE INJ 20 MEQ in SODIUM CHLORIDE 0.9% 1,000 ML IV SCH ×2 (00:23→17:53)
[2019-10-19 05:29] LABS: Basophils # 0.1 10*3/uL (0.0-0.2); Basophils % 0.6 % (0.0-0.8); Eosinophils # 0.3 10*3/uL (0.0-0.87); Hematocrit 32.5 VOL% (42.0-52.0); Hemoglobin 10.7 GM/DL (14.0-18.0); Immature Granulocytes % 7.4 %; Immature Granulocytes Absolute 0.84 #; Lymphocytes # 1.5 10*3/uL (1.4-4.0); Lymphocytes % 13.3 % (21.2-54.2); Mean Corpuscular HGB Conc 32.9 GM/DL (32-36); Mean Corpuscular Volume 84.9 FL (87-102); Mean Platelet Volume 10.5 FL (9.6-12.0); Neutrophils % 66.7 % (38.7-73.9); Platelet Count 178 T/CUMM (130-400); Red Blood Count 3.83 MC/CUMM (3.8-5.5); Red Cell Distribution Width 15.6 % (9.3-17.3); White Blood Count 11.4 T/CUMM (4-12)
[2019-10-19 05:56] LABS: Eosinophils 4 % (0-10); Hypochromasia 1+; Lymphocytes 10 % (20-55); Microcytosis 1+; Platelet Estimate Adequate; Segmented Neutrophils 77 % (50-85); Total Cells Counted 100
[2019-10-19 06:09] LABS: Albumin 1.8 G/DL (3.4-5.0); Bilirubin,Total 0.6 MG/DL (0.2-1.0); Osmolality,Calculated 312.6 MOS/KG (273-304); Total Protein 6.1 G/DL (6.4-8.3)
[2019-10-19] MEDS: PIPERACILLIN/TAZOBACTAM 3,375 MG in SODIUM CHLORIDE 0.9% 100 ML IV SCH ×2 (09:55→21:53)
[2019-10-19] MEDS: ASPIRIN EC 81 MG TABLET PO SCH (09:58)
[2019-10-19] MEDS: OXYBUTYNIN XL 15 MG TABLET PO SCH (09:58)
[2019-10-19] MEDS: metOLazone 5 MG TABLET PO SCH (09:58)
[2019-10-19] MEDS: FERROUS SULFATE 325 MG TABLET PO SCH (09:59)
[2019-10-19] MEDS: MENTHOL/ZINC OXIDE OINT 71 GM JAR TOP SCH ×2 (09:59→21:58)
[2019-10-19] MEDS: DOCUSATE SODIUM 100 MG CAPSULE PO SCH ×2 (09:59→21:51)
[2019-10-19] MEDS: GABAPENTIN 600 MG TABLET PO SCH ×3 (10:00→18:16)
[2019-10-19] MEDS: METOPROLOL TARTRATE 100 MG TABLET PO SCH ×2 (10:00→18:35)
[2019-10-19] MEDS: ENOXAPARIN 30 MG/0.3 ML SYRINGE SUBCUT SCH (10:00)
[2019-10-19] MEDS: FINASTERIDE 5 MG TABLET PO SCH (10:00)
[2019-10-19] MEDS: PANTOPRAZOLE 40 MG TABLET PO SCH (10:04)
[2019-10-19] MEDS: NIACIN ER 500 MG TABLET PO SCH (18:35)
[2019-10-19] MEDS: TAMSULOSIN 0.4 MG CAPSULE PO SCH (18:35)
[2019-10-19] MEDS: ATORVASTATIN 20 MG TABLET PO SCH (21:51)
[2019-10-20] MEDS: MENTHOL/ZINC OXIDE OINT 71 GM JAR TOP SCH ×2 (07:10→21:54)
[2019-10-20] MEDS: ASPIRIN EC 81 MG TABLET PO SCH (09:39)
[2019-10-20] MEDS: metOLazone 5 MG TABLET PO SCH (09:39)
[2019-10-20] MEDS: FINASTERIDE 5 MG TABLET PO SCH (09:39)
[2019-10-20] MEDS: GABAPENTIN 600 MG TABLET PO SCH ×3 (09:40→17:19)
[2019-10-20] MEDS: METOPROLOL TARTRATE 100 MG TABLET PO SCH ×2 (09:40→17:10)
[2019-10-20] MEDS: DOCUSATE SODIUM 100 MG CAPSULE PO SCH ×2 (09:40→21:57)
[2019-10-20] MEDS: OXYBUTYNIN XL 15 MG TABLET PO SCH (09:40)
[2019-10-20] MEDS: FERROUS SULFATE 325 MG TABLET PO SCH (09:41)
[2019-10-20] MEDS: PANTOPRAZOLE 40 MG TABLET PO SCH (09:41)
[2019-10-20] MEDS: PIPERACILLIN/TAZOBACTAM 3,375 MG in SODIUM CHLORIDE 0.9% 100 ML IV SCH ×2 (09:42→21:54)
[2019-10-20] MEDS: MAGNESIUM SULF INJ 2 GM, POTASSIUM CHLORIDE INJ 20 MEQ in SODIUM CHLORIDE 0.9% 1,000 ML IV SCH (13:29)
[2019-10-20] MEDS: ENOXAPARIN 30 MG/0.3 ML SYRINGE SUBCUT SCH (13:30)
[2019-10-20] MEDS: TAMSULOSIN 0.4 MG CAPSULE PO SCH (17:10)
[2019-10-20] MEDS: NIACIN ER 500 MG TABLET PO SCH (17:11)
[2019-10-20] MEDS: ATORVASTATIN 20 MG TABLET PO SCH (21:57)
[2019-10-21] MEDS: METOPROLOL TARTRATE 100 MG TABLET PO SCH ×3 (02:32→16:55)
[2019-10-21] MEDS: MAGNESIUM SULF INJ 2 GM, POTASSIUM CHLORIDE INJ 20 MEQ in SODIUM CHLORIDE 0.9% 1,000 ML IV SCH ×2 (02:58→18:21)
[2019-10-21] MEDS: ALBUMIN 25% 25 GM in PREMIX 1 EACH IV SCH ×2 (05:29→16:56)
[2019-10-21] MEDS: PIPERACILLIN/TAZOBACTAM 3,375 MG in SODIUM CHLORIDE 0.9% 100 ML IV SCH ×3 (06:30→22:10)
[2019-10-21] MEDS: PANTOPRAZOLE 40 MG TABLET PO SCH (10:25)
[2019-10-21] MEDS: GABAPENTIN 600 MG TABLET PO SCH ×3 (10:25→16:55)
[2019-10-21] MEDS: OXYBUTYNIN XL 15 MG TABLET PO SCH (10:25)
[2019-10-21] MEDS: DOCUSATE SODIUM 100 MG CAPSULE PO SCH ×2 (10:25→22:10)
[2019-10-21] MEDS: FINASTERIDE 5 MG TABLET PO SCH (10:25)
[2019-10-21] MEDS: FERROUS SULFATE 325 MG TABLET PO SCH (10:25)
[2019-10-21] MEDS: metOLazone 5 MG TABLET PO SCH (10:26)
[2019-10-21] MEDS: ENOXAPARIN 30 MG/0.3 ML SYRINGE SUBCUT SCH (10:26)
[2019-10-21] MEDS: MENTHOL/ZINC OXIDE OINT 71 GM JAR TOP SCH ×2 (10:26→22:10)
[2019-10-21] MEDS: ASPIRIN EC 81 MG TABLET PO SCH (10:26)
[2019-10-21] MEDS: NIACIN ER 500 MG TABLET PO SCH (16:54)
[2019-10-21] MEDS: TAMSULOSIN 0.4 MG CAPSULE PO SCH (17:01)
[2019-10-21] MEDS: ATORVASTATIN 20 MG TABLET PO SCH (22:10)
[2019-10-22] MEDS: ALBUMIN 25% 25 GM in PREMIX 1 EACH IV SCH ×3 (02:28→19:18)
[2019-10-22] MEDS: DEXTROSE 5% 1,000 ML IV SCH ×2 (04:18→20:54)
[2019-10-22 04:51] LABS: Basophils % 0.5 % (0.0-0.8); Eosinophils # 0.4 10*3/uL (0.0-0.87); Eosinophils % 4.7 % (0.00-10.9); Hemoglobin 8.9 GM/DL (14.0-18.0); Immature Granulocytes % 1.4 %; Immature Granulocytes Absolute 0.11 #; Lymphocytes # 1.4 10*3/uL (1.4-4.0); Lymphocytes % 17.7 % (21.2-54.2); Mean Corpuscular Volume 85.7 FL (87-102); Mean Platelet Volume 10.5 FL (9.6-12.0); Monocytes % 11.9 % (1.7-12.7); Neutrophils % 63.8 % (38.7-73.9); Platelet Count 176 T/CUMM (130-400); Red Blood Count 3.15 MC/CUMM (3.8-5.5); Red Cell Distribution Width 15.4 % (9.3-17.3); White Blood Count 7.6 T/CUMM (4-12)
[2019-10-22 05:11] LABS: Calcium 8.4 MG/DL (8.5-10.1); Osmolality,Calculated 304.8 MOS/KG (273-304)
[2019-10-22 05:14] LABS: Troponin I 0.031 NG/ML (0.00-0.045)
[2019-10-22] MEDS: ENOXAPARIN 30 MG/0.3 ML SYRINGE SUBCUT SCH (10:01)
[2019-10-22] MEDS: METOPROLOL TARTRATE 100 MG TABLET PO SCH ×2 (10:02→19:18)
[2019-10-22] MEDS: metOLazone 5 MG TABLET PO SCH (10:02)
[2019-10-22] MEDS: FINASTERIDE 5 MG TABLET PO SCH (10:03)
[2019-10-22] MEDS: FERROUS SULFATE 325 MG TABLET PO SCH (10:03)
[2019-10-22] MEDS: GABAPENTIN 600 MG TABLET PO SCH ×3 (10:03→19:19)
[2019-10-22] MEDS: PANTOPRAZOLE 40 MG TABLET PO SCH (10:03)
[2019-10-22] MEDS: ASPIRIN EC 81 MG TABLET PO SCH (10:03)
[2019-10-22] MEDS: OXYBUTYNIN XL 15 MG TABLET PO SCH (10:04)
[2019-10-22] MEDS: MENTHOL/ZINC OXIDE OINT 71 GM JAR TOP SCH ×2 (10:04→20:45)
[2019-10-22] MEDS: PIPERACILLIN/TAZOBACTAM 3,375 MG in SODIUM CHLORIDE 0.9% 100 ML IV SCH ×2 (13:14→20:54)
[2019-10-22] MEDS: DOCUSATE SODIUM 100 MG CAPSULE PO SCH ×2 (16:27→21:42)
[2019-10-22] MEDS: MAGNESIUM SULF INJ 2 GM, POTASSIUM CHLORIDE INJ 20 MEQ in SODIUM CHLORIDE 0.9% 1,000 ML IV SCH (17:56)
[2019-10-22] MEDS: TAMSULOSIN 0.4 MG CAPSULE PO SCH (19:18)
[2019-10-22] MEDS: NIACIN ER 500 MG TABLET PO SCH (19:20)
[2019-10-22] MEDS: ATORVASTATIN 20 MG TABLET PO SCH (20:54)
[2019-10-23] MEDS: ALBUMIN 25% 25 GM in PREMIX 1 EACH IV SCH ×3 (01:25→16:58)
[2019-10-23 04:56] LABS: Basophils % 0.3 % (0.0-0.8); Eosinophils # 0.3 10*3/uL (0.0-0.87); Eosinophils % 4.8 % (0.00-10.9); Hematocrit 26.2 VOL% (42.0-52.0); Hemoglobin 8.5 GM/DL (14.0-18.0); Immature Granulocytes Absolute 0.07 #; Lymphocytes # 1.2 10*3/uL (1.4-4.0); Lymphocytes % 17.5 % (21.2-54.2); Mean Corpuscular HGB Conc 32.4 GM/DL (32-36); Mean Corpuscular Volume 85.6 FL (87-102); Mean Platelet Volume 10.2 FL (9.6-12.0); Monocytes % 8.8 % (1.7-12.7); Neutrophils % 67.6 % (38.7-73.9); Platelet Count 186 T/CUMM (130-400); Red Blood Count 3.06 MC/CUMM (3.8-5.5); Red Cell Distribution Width 15.1 % (9.3-17.3); White Blood Count 6.7 T/CUMM (4-12)
[2019-10-23 05:14] LABS: Calcium 8.5 MG/DL (8.5-10.1); Osmolality,Calculated 301.3 MOS/KG (273-304)
[2019-10-23 05:20] LABS: Albumin 3.2 G/DL (3.4-5.0); Bilirubin,Direct 0.23 MG/DL (0.0-0.20); Bilirubin,Indirect 0.6 MG/DL (0.0-1.0); Bilirubin,Total 0.8 MG/DL (0.2-1.0)
[2019-10-23] MEDS: METOPROLOL TARTRATE 100 MG TABLET PO SCH ×2 (08:34→16:59)
[2019-10-23] MEDS: GABAPENTIN 600 MG TABLET PO SCH ×3 (08:35→17:00)
[2019-10-23] MEDS: PANTOPRAZOLE 40 MG TABLET PO SCH (08:35)
[2019-10-23] MEDS: FERROUS SULFATE 325 MG TABLET PO SCH (08:35)
[2019-10-23] MEDS: OXYBUTYNIN XL 15 MG TABLET PO SCH (08:36)
[2019-10-23] MEDS: FINASTERIDE 5 MG TABLET PO SCH (08:36)
[2019-10-23] MEDS: ASPIRIN EC 81 MG TABLET PO SCH (08:36)
[2019-10-23] MEDS: DOCUSATE SODIUM 100 MG CAPSULE PO SCH ×2 (08:36→21:23)
[2019-10-23] MEDS: metOLazone 5 MG TABLET PO SCH (08:36)
[2019-10-23] MEDS: ENOXAPARIN 30 MG/0.3 ML SYRINGE SUBCUT SCH (08:36)
[2019-10-23] MEDS: PIPERACILLIN/TAZOBACTAM 3,375 MG in SODIUM CHLORIDE 0.9% 100 ML IV SCH ×2 (10:12→21:23)
[2019-10-23] MEDS: MENTHOL/ZINC OXIDE OINT 71 GM JAR TOP SCH ×2 (12:53→22:58)
[2019-10-23] MEDS: DEXTROSE 5% 1,000 ML IV SCH ×2 (16:58→17:59)
[2019-10-23] MEDS: NIACIN ER 500 MG TABLET PO SCH (16:59)
[2019-10-23] MEDS: TAMSULOSIN 0.4 MG CAPSULE PO SCH (17:00)
[2019-10-23] MEDS: ACETAMINOPHEN 325 MG TABLET PO PRN (17:01)
[2019-10-24] MEDS: ALBUMIN 25% 25 GM in PREMIX 1 EACH IV SCH ×3 (00:10→16:59)
[2019-10-24 05:39] LABS: Basophils % 0.6 % (0.0-0.8); Eosinophils # 0.3 10*3/uL (0.0-0.87); Eosinophils % 4.6 % (0.00-10.9); Hematocrit 26.2 VOL% (42.0-52.0); Hemoglobin 8.6 GM/DL (14.0-18.0); Immature Granulocytes % 0.6 %; Immature Granulocytes Absolute 0.04 #; Lymphocytes # 1.2 10*3/uL (1.4-4.0); Lymphocytes % 16.8 % (21.2-54.2); Mean Corpuscular HGB Conc 32.8 GM/DL (32-36); Mean Corpuscular Volume 85.6 FL (87-102); Mean Platelet Volume 9.8 FL (9.6-12.0); Monocytes % 8.5 % (1.7-12.7); Neutrophils % 68.9 % (38.7-73.9); Platelet Count 186 T/CUMM (130-400); Red Blood Count 3.06 MC/CUMM (3.8-5.5); Red Cell Distribution Width 15.1 % (9.3-17.3)
[2019-10-24 05:53] LABS: Calcium 8.6 MG/DL (8.5-10.1); Osmolality,Calculated 296.7 MOS/KG (273-304)
[2019-10-24] MEDS: GABAPENTIN 600 MG TABLET PO SCH ×3 (09:04→16:56)
[2019-10-24] MEDS: FERROUS SULFATE 325 MG TABLET PO SCH (09:04)
[2019-10-24] MEDS: metOLazone 5 MG TABLET PO SCH (09:04)
[2019-10-24] MEDS: PANTOPRAZOLE 40 MG TABLET PO SCH (09:04)
[2019-10-24] MEDS: FINASTERIDE 5 MG TABLET PO SCH (09:04)
[2019-10-24] MEDS: ASPIRIN EC 81 MG TABLET PO SCH (09:04)
[2019-10-24] MEDS: DOCUSATE SODIUM 100 MG CAPSULE PO SCH ×2 (09:04→20:46)
[2019-10-24] MEDS: MENTHOL/ZINC OXIDE OINT 71 GM JAR TOP SCH (09:05)
[2019-10-24] MEDS: OXYBUTYNIN XL 15 MG TABLET PO SCH (09:05)
[2019-10-24] MEDS: METOPROLOL TARTRATE 100 MG TABLET PO SCH ×2 (09:05→16:56)
[2019-10-24] MEDS: ENOXAPARIN 30 MG/0.3 ML SYRINGE SUBCUT SCH (09:05)
[2019-10-24] MEDS: PIPERACILLIN/TAZOBACTAM 3,375 MG in SODIUM CHLORIDE 0.9% 100 ML IV SCH ×2 (10:05→20:46)
[2019-10-24] MEDS: DEXTROSE 5% 1,000 ML IV SCH (13:42)
[2019-10-24] MEDS: ALUMINUM/MAGNES/SIMETH MAX STR 30 ML UDCUP PO PRN ×2 (15:11→23:26)
[2019-10-24] MEDS: NIACIN ER 500 MG TABLET PO SCH (16:56)
[2019-10-24] MEDS: TAMSULOSIN 0.4 MG CAPSULE PO SCH (17:28)
[2019-10-25] MEDS: ALBUMIN 25% 25 GM in PREMIX 1 EACH IV SCH ×4 (00:40→23:50)
[2019-10-25] MEDS: MENTHOL/ZINC OXIDE OINT 71 GM JAR TOP SCH ×3 (01:13→20:39)
[2019-10-25] MEDS: DOCUSATE SODIUM 100 MG CAPSULE PO SCH ×2 (09:13→20:39)
[2019-10-25] MEDS: GABAPENTIN 600 MG TABLET PO SCH ×3 (09:13→17:06)
[2019-10-25] MEDS: ENOXAPARIN 30 MG/0.3 ML SYRINGE SUBCUT SCH (09:13)
[2019-10-25] MEDS: METOPROLOL TARTRATE 100 MG TABLET PO SCH ×2 (09:13→17:06)
[2019-10-25] MEDS: PANTOPRAZOLE 40 MG TABLET PO SCH (09:13)
[2019-10-25] MEDS: OXYBUTYNIN XL 15 MG TABLET PO SCH (09:13)
[2019-10-25] MEDS: FERROUS SULFATE 325 MG TABLET PO SCH (09:13)
[2019-10-25] MEDS: ASPIRIN EC 81 MG TABLET PO SCH (09:13)
[2019-10-25] MEDS: FINASTERIDE 5 MG TABLET PO SCH (09:13)
[2019-10-25] MEDS: AMOXICILLIN/CLAV 875 MG TABLET PO SCH ×2 (11:59→20:39)
[2019-10-25] MEDS: DEXTROSE 5% 1,000 ML IV SCH ×2 (12:05→12:06)
[2019-10-25] MEDS: metroNIDAZOLE 500 MG TABLET PO SCH ×2 (15:01→20:39)
[2019-10-25] MEDS: NIACIN ER 500 MG TABLET PO SCH (17:06)
[2019-10-25] MEDS: TAMSULOSIN 0.4 MG CAPSULE PO SCH (17:06)
[2019-10-26] MEDS: AMOXICILLIN/CLAV 875 MG TABLET PO SCH ×2 (03:32→13:31)
[2019-10-26 05:25] LABS: Calcium 8.8 MG/DL (8.5-10.1); Osmolality,Calculated 292.4 MOS/KG (273-304)
[2019-10-26] MEDS: DEXTROSE 5% 1,000 ML IV SCH (06:23)
[2019-10-26] MEDS: GABAPENTIN 600 MG TABLET PO SCH ×2 (10:48→13:31)
[2019-10-26] MEDS: ENOXAPARIN 30 MG/0.3 ML SYRINGE SUBCUT SCH (10:48)
[2019-10-26] MEDS: PANTOPRAZOLE 40 MG TABLET PO SCH (10:48)
[2019-10-26] MEDS: FERROUS SULFATE 325 MG TABLET PO SCH (10:48)
[2019-10-26] MEDS: DOCUSATE SODIUM 100 MG CAPSULE PO SCH (10:48)
[2019-10-26] MEDS: METOPROLOL TARTRATE 100 MG TABLET PO SCH (10:49)
[2019-10-26] MEDS: ASPIRIN EC 81 MG TABLET PO SCH (10:49)
[2019-10-26] MEDS: metroNIDAZOLE 500 MG TABLET PO SCH (10:49)
[2019-10-26] MEDS: OXYBUTYNIN XL 15 MG TABLET PO SCH (10:49)
[2019-10-26] MEDS: FINASTERIDE 5 MG TABLET PO SCH (10:49)
[2019-10-26] MEDS: ALBUMIN 25% 25 GM in PREMIX 1 EACH IV SCH (10:49)
[2019-10-26] MEDS: MENTHOL/ZINC OXIDE OINT 71 GM JAR TOP SCH (10:50)
[2019-10-26] MEDS ORDERED: TUBERCULIN SKIN TEST 0.1 ML SYRINGE INTRADERM ONE (11:08)
[2019-10-26 12:09] VITALS: BP 115/65
[2019-10-26 18:06] LABS: CDT Result Negative (Negative); CDT Specimen Source STOOL
[2019-10-27] MEDS ORDERED: METOPROLOL TARTRATE 25 MG TABLET PO SCH (09:00)
== END 2019-10-26 14:39 | DRG 689 ==
LOC: EDUNIT# → N.ED 08:25 → N.EDINP 09:43 → N.CC 10:37 → N.2E 10-18 12:06
PROVIDERS: ADMIT Family Medicine; ATTEND Family Medicine

== ENCOUNTER 2019-11-17 03:08 | Inpatient (IN) ==
[2019-11-17] MEDS ORDERED: ACETAMINOPHEN 500 MG TABLET PO STA (03:47)
[2019-11-17] MEDS ORDERED: PIPERACILLIN/TAZOBACTAM 3,375 MG in SODIUM CHLORIDE 0.9% 100 ML IV STA (03:47)
[2019-11-17] MEDS ORDERED: SODIUM CHLORIDE 0.9% 1,000 ML IV STA (03:47)
[2019-11-17 04:01] LABS: Basophils # 0.1 10*3/uL (0.0-0.2); Basophils % 0.3 % (0.0-0.8); Hemoglobin 8.7 GM/DL (14.0-18.0); Immature Granulocytes % 1.5 %; Immature Granulocytes Absolute 0.25 #; Lymphocytes # 1.2 10*3/uL (1.4-4.0); Lymphocytes % 6.9 % (21.2-54.2); Mean Corpuscular HGB Conc 33.5 GM/DL (32-36); Mean Corpuscular Volume 88.7 FL (87-102); Mean Platelet Volume 10.2 FL (9.6-12.0); Monocytes % 7.3 % (1.7-12.7); Platelet Count 150 T/CUMM (130-400); Red Blood Count 2.93 MC/CUMM (3.8-5.5); Red Cell Distribution Width 17.4 % (9.3-17.3); White Blood Count 16.9 T/CUMM (4-12)
[2019-11-17 04:04] LABS: INR 1.2; PT Patient Result 12.5 SECS (9.6-12.2)
[2019-11-17 04:20] LABS: Albumin 2.6 G/DL (3.4-5.0); Bilirubin,Total 0.7 MG/DL (0.2-1.0); CKMB % 10.3 %; Calcium 8.3 MG/DL (8.5-10.1); Osmolality,Calculated 290.7 MOS/KG (273-304); Total Protein 7.4 G/DL (6.4-8.3)
[2019-11-17 04:53] LABS: Troponin I 22.3 NG/ML (0.00-0.045)
[2019-11-17 05:30] LABS: Apearance,Urine CLOUDY (Clear); Bacteria,Urine Many /HPF (Few); Bilirubin,Urine Negative (Negative); Blood, Urine Moderate mg/dL (Negative); Glucose,Urine (UA) Negative (Negative); Ketones,Urine Negative (Negative); Mucus,Urine Occasional /LPF (Occasional); Nitrite,Urine Negative (Negative); Protein,Urine 100 MG/DL; RBC,Urine 35 /HPF (0-4); Urine Color Dark yellow (Yellow); Urine Urobilinogen < 2.0 EU/DL (0.2-1.0); WBC,Urine 1075 /HPF (0-6)
[2019-11-17] MEDS ORDERED: ENOXAPARIN 40 MG/0.4 ML SYRINGE SUBCUT STA (05:39)
[2019-11-17] MEDS ORDERED: SODIUM CHLORIDE 0.9% 1,000 ML IV ONE (06:46)
[2019-11-17] MEDS ORDERED: GLUCAGON 1 MG VIAL IM PRN (08:11)
[2019-11-17] MEDS ORDERED: MEROPENEM 500 MG in SODIUM CHLORIDE 0.9% 100 ML IV ONE (08:11)
[2019-11-17] MEDS ORDERED: ACETAMINOPHEN 325 MG TABLET PO PRN (08:11)
[2019-11-17] MEDS ORDERED: ONDANSETRON 4 MG/2 ML VIAL IV PRN (08:11)
[2019-11-17] MEDS ORDERED: ALBUTEROL/IPRATROPIUM 3 ML NEB RESP TX PRN (08:11)
[2019-11-17] MEDS ORDERED: DEXTROSE 10% 250 ML BAG IV PRN (08:16)
[2019-11-17] MEDS ORDERED: NOREPINEPHRINE 8 MG in SODIUM CHLORIDE 0.9% 242 ML IV PRN (08:52)
[2019-11-17] MEDS: DOCUSATE SODIUM 100 MG CAPSULE PO SCH ×2 (08:58→22:39)
[2019-11-17] MEDS: INSULIN REGULAR 100 UNIT/ML SUBCUT SCH ×3 (09:51→18:05)
[2019-11-17] MEDS: SODIUM CHLORIDE 0.9% 1,000 ML IV SCH ×2 (09:51→23:15)
[2019-11-17] MEDS: FUROSEMIDE 20 MG/2 ML VIAL IV SCH ×2 (09:56→15:08)
[2019-11-17] MEDS: PANTOPRAZOLE 40 MG VIAL IV SCH (10:00)
[2019-11-17] MEDS: ENOXAPARIN 30 MG/0.3 ML SYRINGE SUBCUT SCH (10:03)
[2019-11-17 10:18] LABS: CKMB % 10.4 %
[2019-11-17 10:28] LABS: Troponin I 78.9 NG/ML (0.00-0.045)
[2019-11-17] MEDS ORDERED: MAGNESIUM SULF RIDER 4 GM in PREMIX 1 EACH IV PRN (10:46)
[2019-11-17] MEDS ORDERED: AMIODARONE INJ 150 MG in DEXTROSE 5% 100 ML IV ONE (11:04)
[2019-11-17] MEDS: POTASSIUM CHLORIDE RIDER 10 MEQ in PREMIX 1 EACH IV PRN ×3 (11:06→12:58)
[2019-11-17] MEDS ORDERED: AMIODARONE INJ 450 MG in DEXTROSE 5% 241 ML IV SCH (11:30)
[2019-11-17] MEDS ORDERED: ASPIRIN 300 MG SUPP RECTAL ONE ×2 (13:06→14:30)
[2019-11-17 13:53] LABS: CKMB % 10.5 %
[2019-11-17 13:56] LABS: Troponin I 76.5 NG/ML (0.00-0.045)
[2019-11-17] MEDS: PIPERACILLIN/TAZOBACTAM 3,375 MG in SODIUM CHLORIDE 0.9% 100 ML IV SCH ×2 (15:08→22:38)
[2019-11-17 17:17] LABS: CKMB % 10.7 %
[2019-11-17 17:18] LABS: Troponin I 65.9 NG/ML (0.00-0.045)
[2019-11-17] MEDS: AMIODARONE INJ 450 MG in DEXTROSE 5% 241 ML IV SCH (21:10)
[2019-11-18] MEDS: INSULIN REGULAR 100 UNIT/ML SUBCUT SCH ×4 (01:17→18:55)
[2019-11-18 05:18] LABS: Calcium 7.8 MG/DL (8.5-10.1); Osmolality,Calculated 296.4 MOS/KG (273-304); Risk Ratio 3.22; Total Protein 6.7 G/DL (6.4-8.3); VLDL CHOLESTEROL 22.6 MG/DL
[2019-11-18 05:53] LABS: Basophils # 0.1 10*3/uL (0.0-0.2); Basophils % 0.5 % (0.0-0.8); Eosinophils % 0.2 % (0.00-10.9); Hematocrit 28.6 VOL% (42.0-52.0); Hemoglobin 9.5 GM/DL (14.0-18.0); Immature Granulocytes % 0.8 %; Mean Corpuscular HGB Conc 33.2 GM/DL (32-36); Mean Corpuscular Volume 88.3 FL (87-102); Mean Platelet Volume 10.3 FL (9.6-12.0); Monocytes % 6.8 % (1.7-12.7); Neutrophils % 83.7 % (38.7-73.9); Platelet Count 139 T/CUMM (130-400); Red Blood Count 3.24 MC/CUMM (3.8-5.5); Red Cell Distribution Width 17.5 % (9.3-17.3); White Blood Count 12.8 T/CUMM (4-12)
[2019-11-18] MEDS: PIPERACILLIN/TAZOBACTAM 3,375 MG in SODIUM CHLORIDE 0.9% 100 ML IV SCH ×3 (06:08→22:37)
[2019-11-18] MEDS: POTASSIUM CHLORIDE RIDER 10 MEQ in PREMIX 1 EACH IV PRN ×3 (06:19→13:58)
[2019-11-18] MEDS: FUROSEMIDE 20 MG/2 ML VIAL IV SCH ×2 (09:18→15:46)
[2019-11-18] MEDS: DOCUSATE SODIUM 100 MG CAPSULE PO SCH ×2 (09:24→20:38)
[2019-11-18] MEDS: PANTOPRAZOLE 40 MG VIAL IV SCH (09:24)
[2019-11-18] MEDS: ENOXAPARIN 30 MG/0.3 ML SYRINGE SUBCUT SCH (09:27)
[2019-11-18 10:11] LABS: CKMB % 8.7 %; Troponin I 55.5 NG/ML (0.00-0.045)
[2019-11-18] MEDS ORDERED: POTASSIUM CHLORIDE 20 MEQ TABLET PO ONE (10:21)
[2019-11-18] MEDS ORDERED: MAGNESIUM SULF RIDER 2 GM in PREMIX 1 EACH IV ONE (10:24)
[2019-11-18] MEDS: ASCORBIC ACID 500 MG TABLET PO SCH ×2 (12:51→20:38)
[2019-11-18] MEDS: AMIODARONE INJ 450 MG in DEXTROSE 5% 241 ML IV SCH (12:52)
[2019-11-18] MEDS: ASPIRIN EC 325 MG TABLET PO SCH (12:52)
[2019-11-18] MEDS: SODIUM CHLORIDE 0.9% 1,000 ML IV SCH (13:10)
[2019-11-18] MEDS: AMIODARONE 200 MG TABLET PO SCH ×2 (15:52→20:38)
[2019-11-19] MEDS: INSULIN REGULAR 100 UNIT/ML SUBCUT SCH ×4 (00:04→17:45)
[2019-11-19] MEDS: SODIUM CHLORIDE 0.9% 1,000 ML IV SCH ×2 (03:42→17:54)
[2019-11-19 05:10] LABS: Basophils # 0.1 10*3/uL (0.0-0.2); Basophils % 0.7 % (0.0-0.8); Eosinophils # 0.3 10*3/uL (0.0-0.87); Eosinophils % 3.3 % (0.00-10.9); Hematocrit 24.6 VOL% (42.0-52.0); Hemoglobin 7.9 GM/DL (14.0-18.0); Immature Granulocytes % 1.1 %; Immature Granulocytes Absolute 0.09 #; Lymphocytes # 1.3 10*3/uL (1.4-4.0); Lymphocytes % 15.1 % (21.2-54.2); Mean Corpuscular HGB Conc 32.1 GM/DL (32-36); Mean Corpuscular Volume 88.8 FL (87-102); Mean Platelet Volume 10.4 FL (9.6-12.0); Monocytes % 9.2 % (1.7-12.7); Neutrophils % 70.6 % (38.7-73.9); Platelet Count 134 T/CUMM (130-400); Red Blood Count 2.77 MC/CUMM (3.8-5.5); Red Cell Distribution Width 17.8 % (9.3-17.3); White Blood Count 8.6 T/CUMM (4-12)
[2019-11-19] MEDS: PIPERACILLIN/TAZOBACTAM 3,375 MG in SODIUM CHLORIDE 0.9% 100 ML IV SCH ×3 (05:50→20:30)
[2019-11-19 06:03] LABS: Calcium 8.1 MG/DL (8.5-10.1); Osmolality,Calculated 296.1 MOS/KG (273-304)
[2019-11-19 06:05] LABS: Hypochromasia 1+; Microcytosis 1+
[2019-11-19 06:06] LABS: Ovalocytes Slight; Platelet Estimate Adequate
[2019-11-19] MEDS: POTASSIUM CHLORIDE RIDER 10 MEQ in PREMIX 1 EACH IV PRN ×6 (06:31→19:00)
[2019-11-19] MEDS: DOCUSATE SODIUM 100 MG CAPSULE PO SCH ×2 (09:14→20:25)
[2019-11-19] MEDS: ENOXAPARIN 30 MG/0.3 ML SYRINGE SUBCUT SCH (09:14)
[2019-11-19] MEDS: ASPIRIN EC 325 MG TABLET PO SCH (09:20)
[2019-11-19] MEDS: PANTOPRAZOLE 40 MG VIAL IV SCH (09:20)
[2019-11-19] MEDS: AMIODARONE 200 MG TABLET PO SCH ×2 (09:20→20:24)
[2019-11-19] MEDS: FUROSEMIDE 20 MG/2 ML VIAL IV SCH ×2 (09:20→17:34)
[2019-11-19] MEDS: ASCORBIC ACID 500 MG TABLET PO SCH ×2 (09:20→20:24)
[2019-11-19] MEDS ORDERED: SODIUM CHLORIDE 0.9% 1,000 ML IV PRN (21:50)
[2019-11-20] MEDS: INSULIN REGULAR 100 UNIT/ML SUBCUT SCH ×4 (00:11→18:00)
[2019-11-20] MEDS ORDERED: FUROSEMIDE 40 MG/4 ML VIAL IV ONE (03:59)
[2019-11-20 05:21] LABS: Basophils # 0.1 10*3/uL (0.0-0.2); Basophils % 0.8 % (0.0-0.8); Eosinophils # 0.5 10*3/uL (0.0-0.87); Eosinophils % 5.3 % (0.00-10.9); Hematocrit 27.1 VOL% (42.0-52.0); Immature Granulocytes % 2.5 %; Immature Granulocytes Absolute 0.21 #; Lymphocytes # 1.5 10*3/uL (1.4-4.0); Lymphocytes % 17.8 % (21.2-54.2); Mean Corpuscular HGB Conc 33.2 GM/DL (32-36); Mean Platelet Volume 9.9 FL (9.6-12.0); Monocytes % 6.5 % (1.7-12.7); Neutrophils % 67.1 % (38.7-73.9); Platelet Count 142 T/CUMM (130-400); Red Blood Count 3.08 MC/CUMM (3.8-5.5); Red Cell Distribution Width 17.1 % (9.3-17.3); White Blood Count 8.5 T/CUMM (4-12)
[2019-11-20 05:44] LABS: Calcium 8.3 MG/DL (8.5-10.1); Osmolality,Calculated 293.1 MOS/KG (273-304)
[2019-11-20] MEDS: PIPERACILLIN/TAZOBACTAM 3,375 MG in SODIUM CHLORIDE 0.9% 100 ML IV SCH (05:58)
[2019-11-20] MEDS: POTASSIUM CHLORIDE RIDER 10 MEQ in PREMIX 1 EACH IV PRN ×3 (05:59→11:40)
[2019-11-20 06:04] LABS: Anisocytosis 1+; Eosinophils 8 % (0-10); Hypochromasia 1+; Lymphocytes 18 % (20-55); Macrocytosis 1+; Ovalocytes Few; Platelet Estimate Adequate; Segmented Neutrophils 72 % (50-85); Total Cells Counted 100
[2019-11-20] MEDS: SODIUM CHLORIDE 0.9% 1,000 ML IV SCH ×2 (08:45→22:52)
[2019-11-20 08:49] LABS: Albumin 2.1 G/DL (3.4-5.0); Bilirubin,Direct 0.3 MG/DL (0.0-0.20); Bilirubin,Indirect 0.2 MG/DL (0.0-1.0); Bilirubin,Total 0.5 MG/DL (0.2-1.0); Total Protein 6.4 G/DL (6.4-8.3)
[2019-11-20] MEDS: FUROSEMIDE 20 MG/2 ML VIAL IV SCH ×2 (09:47→16:55)
[2019-11-20] MEDS: cefOXitin 1,000 MG in SYRINGE 1 EACH IV SCH ×2 (09:49→20:54)
[2019-11-20] MEDS: ASCORBIC ACID 500 MG TABLET PO SCH ×2 (09:50→20:53)
[2019-11-20] MEDS: DOCUSATE SODIUM 100 MG CAPSULE PO SCH ×2 (09:50→21:04)
[2019-11-20] MEDS: AMIODARONE 200 MG TABLET PO SCH ×2 (09:50→20:53)
[2019-11-20] MEDS: ENOXAPARIN 30 MG/0.3 ML SYRINGE SUBCUT SCH (09:50)
[2019-11-20] MEDS: ASPIRIN EC 325 MG TABLET PO SCH (09:50)
[2019-11-20] MEDS: PANTOPRAZOLE 40 MG VIAL IV SCH (09:50)
[2019-11-20] MEDS: MAGNESIUM SULF RIDER 2 GM in PREMIX 1 EACH IV PRN (10:15)
[2019-11-21] MEDS: INSULIN REGULAR 100 UNIT/ML SUBCUT SCH ×4 (00:45→17:10)
[2019-11-21 06:07] LABS: Basophils # 0.1 10*3/uL (0.0-0.2); Basophils % 0.9 % (0.0-0.8); Eosinophils # 0.3 10*3/uL (0.0-0.87); Eosinophils % 3.6 % (0.00-10.9); Hematocrit 29.8 VOL% (42.0-52.0); Hemoglobin 9.8 GM/DL (14.0-18.0); Immature Granulocytes % 2.9 %; Immature Granulocytes Absolute 0.27 #; Lymphocytes # 1.8 10*3/uL (1.4-4.0); Lymphocytes % 18.9 % (21.2-54.2); Mean Corpuscular HGB Conc 32.9 GM/DL (32-36); Mean Corpuscular Volume 89.8 FL (87-102); Mean Platelet Volume 10.3 FL (9.6-12.0); Neutrophils % 64.7 % (38.7-73.9); Platelet Count 189 T/CUMM (130-400); Red Blood Count 3.32 MC/CUMM (3.8-5.5); Red Cell Distribution Width 17.4 % (9.3-17.3); White Blood Count 9.3 T/CUMM (4-12)
[2019-11-21 06:10] LABS: Calcium 8.3 MG/DL (8.5-10.1); Osmolality,Calculated 294.8 MOS/KG (273-304)
[2019-11-21] MEDS: MAGNESIUM SULF RIDER 2 GM in PREMIX 1 EACH IV PRN (06:35)
[2019-11-21] MEDS: POTASSIUM CHLORIDE RIDER 10 MEQ in PREMIX 1 EACH IV PRN ×3 (06:35→09:23)
[2019-11-21 06:38] LABS: Band Neutrophils 1 % (0-10); Eosinophils 4 % (0-10); Hypochromasia Slight; Lymphocytes 13 % (20-55); Metamyelocytes 1 %; Myelocytes 1 %; Segmented Neutrophils 71 % (50-85); Total Cells Counted 100
[2019-11-21 06:39] LABS: Anisocytosis 1+; Microcytosis 1+; Ovalocytes Slight
[2019-11-21] MEDS: cefOXitin 1,000 MG in SYRINGE 1 EACH IV SCH ×2 (09:15→20:23)
[2019-11-21] MEDS: FUROSEMIDE 20 MG/2 ML VIAL IV SCH ×2 (09:16→16:43)
[2019-11-21] MEDS: ASCORBIC ACID 500 MG TABLET PO SCH ×2 (09:18→20:23)
[2019-11-21] MEDS: ASPIRIN EC 325 MG TABLET PO SCH (09:19)
[2019-11-21] MEDS: AMIODARONE 200 MG TABLET PO SCH ×2 (09:19→20:24)
[2019-11-21] MEDS: PANTOPRAZOLE 40 MG TABLET PO SCH (09:19)
[2019-11-21] MEDS: ENOXAPARIN 30 MG/0.3 ML SYRINGE SUBCUT SCH (09:20)
[2019-11-21] MEDS: DOCUSATE SODIUM 100 MG CAPSULE PO SCH ×2 (09:20→20:24)
[2019-11-21] MEDS: SODIUM CHLORIDE 0.9% 1,000 ML IV SCH (12:17)
[2019-11-21] MEDS: DESITIN 4OZ/NYSTATIN 15 GRAM MIXTURE PASTE TOP SCH ×2 (12:51→20:24)
[2019-11-21] MEDS: METOPROLOL TARTRATE 25 MG TABLET PO SCH (12:51)
[2019-11-21] MEDS ORDERED: ATORVASTATIN 20 MG TABLET PO SCH (21:00)
[2019-11-22] MEDS: INSULIN REGULAR 100 UNIT/ML SUBCUT SCH ×3 (00:27→13:14)
[2019-11-22] MEDS: SODIUM CHLORIDE 0.9% 1,000 ML IV SCH (01:41)
[2019-11-22] MEDS: FUROSEMIDE 20 MG/2 ML VIAL IV SCH (08:17)
[2019-11-22] MEDS: ENOXAPARIN 30 MG/0.3 ML SYRINGE SUBCUT SCH (08:18)
[2019-11-22] MEDS: ASCORBIC ACID 500 MG TABLET PO SCH (08:19)
[2019-11-22] MEDS: PANTOPRAZOLE 40 MG TABLET PO SCH (08:19)
[2019-11-22] MEDS: ASPIRIN EC 325 MG TABLET PO SCH (08:19)
[2019-11-22] MEDS: METOPROLOL TARTRATE 25 MG TABLET PO SCH (08:19)
[2019-11-22] MEDS: DOCUSATE SODIUM 100 MG CAPSULE PO SCH (08:21)
[2019-11-22] MEDS: AMIODARONE 200 MG TABLET PO SCH (08:21)
[2019-11-22] MEDS: DESITIN 4OZ/NYSTATIN 15 GRAM MIXTURE PASTE TOP SCH (08:21)
[2019-11-22] MEDS: cefOXitin 1,000 MG in SYRINGE 1 EACH IV SCH (08:22)
[2019-11-22] MEDS ORDERED: FUROSEMIDE 40 MG TABLET PO SCH (09:00)
[2019-11-22] MEDS ORDERED: POTASSIUM CHLORIDE 10 MEQ TABLET PO SCH (09:00)
[2019-11-22 16:54] VITALS: BP 124/74
[2019-11-23] MEDS ORDERED: FUROSEMIDE 40 MG/4 ML VIAL IV SCH (09:00)
[2019-11-24] MEDS ORDERED: AMIODARONE 200 MG TABLET PO SCH (22:00)
[2019-11-25] MEDS ORDERED: AMIODARONE 200 MG TABLET PO SCH (09:00)
== END 2019-11-22 16:30 | DRG 871 ==
LOC: EDUNIT# → EDBD → N.ED 03:08 → N.EDINP 05:40 → N.CC 06:36 → N.4E 11-22 10:32
PROVIDERS: ADMIT Family Medicine; ATTEND Family Medicine

== ENCOUNTER 2020-02-14 18:58 | Inpatient (IN) ==
[2020-02-14] MEDS ORDERED: ONDANSETRON 4 MG/2 ML VIAL IV STA (19:37)
[2020-02-14] MEDS ORDERED: ALUM/MAG/SIMETH/LIDO VISC 1:1 30 ML BOTTLE PO STA (19:37)
[2020-02-14] MEDS ORDERED: ASPIRIN 325 MG TABLET PO STA (19:37)
[2020-02-14] MEDS ORDERED: PANTOPRAZOLE 40 MG VIAL IV STA (19:37)
[2020-02-14] MEDS ORDERED: METOCLOPRAMIDE 10 MG/2 ML VIAL IV STA (19:37)
[2020-02-14 20:46] LABS: Basophils # 0.1 10*3/uL (0.0-0.2); Basophils % 0.6 % (0.0-0.8); Eosinophils # 0.3 10*3/uL (0.0-0.87); Eosinophils % 3.7 % (0.00-10.9); Hematocrit 23.9 VOL% (42.0-52.0); Hemoglobin 7.3 GM/DL (14.0-18.0); Immature Granulocytes % 0.8 %; Immature Granulocytes Absolute 0.07 #; Lymphocytes # 1.4 10*3/uL (1.4-4.0); Lymphocytes % 15.8 % (21.2-54.2); Mean Corpuscular HGB Conc 30.5 GM/DL (32-36); Mean Corpuscular Volume 95.6 FL (87-102); Mean Platelet Volume 9.4 FL (9.6-12.0); Monocytes % 9.3 % (1.7-12.7); Neutrophils % 69.8 % (38.7-73.9); Platelet Count 164 T/CUMM (130-400); Red Cell Distribution Width 15.2 % (9.3-17.3)
[2020-02-14 21:09] LABS: Ferritin 437.6 ng/ml (26-388); Troponin I 0.043 NG/ML (0.00-0.045)
[2020-02-14 21:14] LABS: Alanine Aminotransferase 12 U/L (16-61); Albumin 2.8 G/DL (3.4-5.0); Alkaline Phosphatase 61 U/L (45-117); Aspartate Amino Transferase 9 U/L (0-37); Bilirubin,Total < 0.39 MG/DL (0.2-1.0); Blood Urea Nitrogen 48 MG/DL (7-18); Calcium 7.9 MG/DL (8.5-10.1); Estimated Glom Filtration Rate 14 ML/MIN; Glucose 86 MG/DL (74-106); Osmolality,Calculated 290.4 MOS/KG (273-304); Total Protein 6.3 G/DL (6.4-8.3)
[2020-02-14] MEDS ORDERED: methylPREDNISolone SOD SUC 125 MG/2 ML VIAL IV STA (21:27)
[2020-02-14] MEDS ORDERED: SODIUM CHLORIDE 0.9% 1,000 ML IV STA (21:27)
[2020-02-14] MEDS ORDERED: AZITHROMYCIN INJ 500 MG in SODIUM CHLORIDE 0.9% 250 ML IV STA (21:27)
[2020-02-14] MEDS ORDERED: VANCOMYCIN INJ 1,000 MG in SODIUM CHLORIDE 0.9% 250 ML IV STA (21:31)
[2020-02-14] MEDS ORDERED: ONDANSETRON 4 MG/2 ML VIAL IV PRN (21:49)
[2020-02-14] MEDS ORDERED: ACETAMINOPHEN 500 MG TABLET PO PRN (21:49)
[2020-02-14] MEDS ORDERED: DOPamine 800 MG/250 ML PREMIX IV ONE (22:23)
[2020-02-14] MEDS ORDERED: VANCOMYCIN INJ 1,000 MG in SODIUM CHLORIDE 0.9% 250 ML IV SCH (22:30)
[2020-02-14] MEDS ORDERED: DOPamine 800 MG/250 ML PREMIX IV PRN (22:43)
[2020-02-14 22:50] LABS: Apearance,Urine CLOUDY (Clear); Bacteria,Urine Moderate /HPF (Few); Bilirubin,Urine Negative (Negative); Blood, Urine Negative (Negative); Glucose,Urine (UA) Negative (Negative); Ketones,Urine Negative (Negative); Nitrite,Urine Negative (Negative); Protein,Urine 30 MG/DL; Urine Color Yellow (Yellow); Urine Specific Gravity 1.009 (1.001-1.035); Urine Urobilinogen < 2.0 EU/DL (0.2-1.0); WBC,Urine 725 /HPF (0-6)
[2020-02-14 23:03] LABS: Barbiturates Screen,Urine Negative (Negative); Benzodiazepines Screen,Urine Negative (Negative); Cannabinoid Screen,Urine Negative (Negative); Opiate Screen,Urine Negative (Negative); Phencyclidine Screen,Urine Negative (Negative)
[2020-02-15] MEDS: DOPamine 800 MG/250 ML PREMIX IV PRN ×2 (00:15→10:24)
[2020-02-15 04:57] LABS: Basophils % 0.2 % (0.0-0.8); Eosinophils % 0.1 % (0.00-10.9); Hematocrit 24.8 VOL% (42.0-52.0); Hemoglobin 7.8 GM/DL (14.0-18.0); Immature Granulocytes % 0.9 %; Lymphocytes # 0.5 10*3/uL (1.4-4.0); Lymphocytes % 3.9 % (21.2-54.2); Mean Corpuscular HGB Conc 31.5 GM/DL (32-36); Mean Corpuscular Volume 92.5 FL (87-102); Mean Platelet Volume 9.6 FL (9.6-12.0); Monocytes % 0.8 % (1.7-12.7); Neutrophils % 94.1 % (38.7-73.9); Platelet Count 179 T/CUMM (130-400); Red Blood Count 2.68 MC/CUMM (3.8-5.5); Red Cell Distribution Width 15.4 % (9.3-17.3); White Blood Count 11.7 T/CUMM (4-12)
[2020-02-15] MEDS: methylPREDNISolone SOD SUC 125 MG/2 ML VIAL IV SCH ×3 (04:58→21:55)
[2020-02-15 05:23] LABS: Albumin 2.3 G/DL (3.4-5.0); Bilirubin,Total 1.7 MG/DL (0.2-1.0); Calcium 7.5 MG/DL (8.5-10.1); Total Protein 6.5 G/DL (6.4-8.3)
[2020-02-15 05:42] LABS: Total Cells Counted 100
[2020-02-15 05:43] LABS: Anisocytosis 2+; Lymphocytes 2 % (20-55); Macrocytosis 2+; Platelet Estimate Normal; Segmented Neutrophils 96 % (50-85)
[2020-02-15] MEDS: PANTOPRAZOLE 40 MG TABLET PO SCH (05:56)
[2020-02-15] MEDS ORDERED: PANTOPRAZOLE 20 MG TABLET PO SCH (06:00)
[2020-02-15] MEDS ORDERED: MEROPENEM 1,000 MG in SODIUM CHLORIDE 0.9% 100 ML IV SCH (07:30)
[2020-02-15] MEDS ORDERED: cefTRIAXone 2,000 MG in SODIUM CHLORIDE 0.9% 100 ML IV SCH (09:00)
[2020-02-15] MEDS: ASCORBIC ACID 500 MG TABLET PO SCH ×2 (09:08→21:58)
[2020-02-15] MEDS: ZINC SULFATE 220 MG CAPSULE PO SCH (09:08)
[2020-02-15] MEDS: MEGESTROL 40 MG TABLET PO SCH ×2 (09:08→21:58)
[2020-02-15] MEDS: HYDROXYCHLOROQUINE 200 MG TABLET PO SCH ×2 (09:08→21:58)
[2020-02-15] MEDS: QUEtiapine 25 MG TABLET PO SCH ×2 (09:08→21:58)
[2020-02-15] MEDS: DOCUSATE SODIUM 100 MG CAPSULE PO SCH ×2 (09:08→21:58)
[2020-02-15] MEDS: AMIODARONE 200 MG TABLET PO SCH ×2 (09:08→21:58)
[2020-02-15] MEDS: ASPIRIN EC 325 MG TABLET PO SCH (09:08)
[2020-02-15] MEDS: MEROPENEM 1,000 MG in SODIUM CHLORIDE 0.9% 100 ML IV SCH ×2 (12:29→21:59)
[2020-02-15] MEDS ORDERED: AZITHROMYCIN INJ 500 MG in SODIUM CHLORIDE 0.9% 250 ML IV SCH (21:00)
[2020-02-15] MEDS: ATORVASTATIN 20 MG TABLET PO SCH (21:58)
[2020-02-15] MEDS: DONEPEZIL 5 MG TABLET PO SCH (21:58)
[2020-02-15] MEDS: AZITHROMYCIN 250 MG TABLET PO SCH (21:58)
[2020-02-16] MEDS: methylPREDNISolone SOD SUC 125 MG/2 ML VIAL IV SCH ×3 (05:52→22:16)
[2020-02-16] MEDS: PANTOPRAZOLE 40 MG TABLET PO SCH (06:00)
[2020-02-16] MEDS: DOCUSATE SODIUM 100 MG CAPSULE PO SCH ×2 (08:56→20:50)
[2020-02-16] MEDS: ASCORBIC ACID 500 MG TABLET PO SCH ×2 (08:56→20:50)
[2020-02-16] MEDS: QUEtiapine 25 MG TABLET PO SCH ×2 (08:56→20:50)
[2020-02-16] MEDS: HYDROXYCHLOROQUINE 200 MG TABLET PO SCH ×2 (08:56→20:50)
[2020-02-16] MEDS: ASPIRIN EC 325 MG TABLET PO SCH (08:56)
[2020-02-16] MEDS: MEGESTROL 40 MG TABLET PO SCH ×2 (08:56→20:50)
[2020-02-16] MEDS: AMIODARONE 200 MG TABLET PO SCH ×2 (08:56→20:50)
[2020-02-16] MEDS: MEROPENEM 1,000 MG in SODIUM CHLORIDE 0.9% 100 ML IV SCH (11:46)
[2020-02-16] MEDS: AZITHROMYCIN 250 MG TABLET PO SCH (20:50)
[2020-02-16] MEDS: ATORVASTATIN 20 MG TABLET PO SCH (20:50)
[2020-02-16] MEDS: DONEPEZIL 5 MG TABLET PO SCH (20:50)
[2020-02-17] MEDS: MEROPENEM 500 MG in SODIUM CHLORIDE 0.9% 100 ML IV SCH ×3 (01:05→22:45)
[2020-02-17] MEDS: PANTOPRAZOLE 40 MG TABLET PO SCH (05:55)
[2020-02-17] MEDS: methylPREDNISolone SOD SUC 125 MG/2 ML VIAL IV SCH ×3 (05:58→21:56)
[2020-02-17] MEDS: DOCUSATE SODIUM 100 MG CAPSULE PO SCH ×2 (08:15→21:55)
[2020-02-17] MEDS: ZINC SULFATE 220 MG CAPSULE PO SCH (08:15)
[2020-02-17] MEDS: HYDROXYCHLOROQUINE 200 MG TABLET PO SCH ×2 (08:15→21:55)
[2020-02-17] MEDS: AMIODARONE 200 MG TABLET PO SCH ×2 (08:15→21:55)
[2020-02-17] MEDS: ASPIRIN EC 325 MG TABLET PO SCH (08:15)
[2020-02-17] MEDS: ASCORBIC ACID 500 MG TABLET PO SCH ×2 (08:15→21:55)
[2020-02-17] MEDS: QUEtiapine 25 MG TABLET PO SCH ×2 (08:15→21:55)
[2020-02-17] MEDS: MEGESTROL 40 MG TABLET PO SCH ×2 (08:15→21:55)
[2020-02-17 16:50] LABS: Basophils % 0.1 % (0.0-0.8); Hematocrit 21.6 VOL% (42.0-52.0); Hemoglobin 6.6 GM/DL (14.0-18.0); Immature Granulocytes % 1.5 %; Immature Granulocytes Absolute 0.19 #; Lymphocytes # 0.5 10*3/uL (1.4-4.0); Lymphocytes % 3.9 % (21.2-54.2); Mean Corpuscular HGB Conc 30.6 GM/DL (32-36); Mean Corpuscular Volume 95.2 FL (87-102); Mean Platelet Volume 10.6 FL (9.6-12.0); Neutrophils % 91.5 % (38.7-73.9); Platelet Count 180 T/CUMM (130-400); Red Blood Count 2.27 MC/CUMM (3.8-5.5); Red Cell Distribution Width 15.5 % (9.3-17.3); White Blood Count 12.5 T/CUMM (4-12)
[2020-02-17] MEDS ORDERED: FUROSEMIDE 20 MG/2 ML VIAL IV PRN (17:22)
[2020-02-17] MEDS ORDERED: SODIUM CHLORIDE 0.9% 1,000 ML IV PRN (17:22)
[2020-02-17 17:31] LABS: Albumin 2.6 G/DL (3.4-5.0); Bilirubin,Total 0.4 MG/DL (0.2-1.0); Osmolality,Calculated 297.8 MOS/KG (273-304); Total Protein 6.4 G/DL (6.4-8.3); Uric Acid 4.4 MG/DL (3.5-7.2)
[2020-02-17 18:15] LABS: Anisocytosis 2+; Lymphocytes 5 % (20-55); Macrocytosis 1+; Segmented Neutrophils 94 % (50-85); Total Cells Counted 100
[2020-02-17 18:16] LABS: Platelet Estimate Adequate
[2020-02-17] MEDS: ATORVASTATIN 20 MG TABLET PO SCH (21:55)
[2020-02-17] MEDS: AZITHROMYCIN 250 MG TABLET PO SCH (21:55)
[2020-02-17] MEDS: DONEPEZIL 5 MG TABLET PO SCH (21:55)
[2020-02-17] MEDS: ALUMINUM/MAGNES/SIMETH MAX STR 30 ML UDCUP PO SCH (23:58)
[2020-02-18] MEDS: methylPREDNISolone SOD SUC 125 MG/2 ML VIAL IV SCH ×3 (05:00→21:28)
[2020-02-18] MEDS: PANTOPRAZOLE 40 MG TABLET PO SCH ×2 (06:49→21:28)
[2020-02-18] MEDS: ALUMINUM/MAGNES/SIMETH MAX STR 30 ML UDCUP PO SCH ×3 (06:49→21:29)
[2020-02-18] MEDS: ASCORBIC ACID 500 MG TABLET PO SCH ×2 (08:40→21:28)
[2020-02-18] MEDS: ASPIRIN EC 325 MG TABLET PO SCH (08:40)
[2020-02-18] MEDS: MEGESTROL 40 MG TABLET PO SCH ×2 (08:40→21:28)
[2020-02-18] MEDS: QUEtiapine 25 MG TABLET PO SCH ×2 (08:40→21:28)
[2020-02-18] MEDS: DOCUSATE SODIUM 100 MG CAPSULE PO SCH ×2 (08:40→21:27)
[2020-02-18] MEDS: AMIODARONE 200 MG TABLET PO SCH ×2 (08:40→21:27)
[2020-02-18] MEDS: HYDROXYCHLOROQUINE 200 MG TABLET PO SCH ×2 (08:40→21:28)
[2020-02-18 10:25] LABS: Hematocrit 29.6 VOL% (42.0-52.0); Hemoglobin 9.5 GM/DL (14.0-18.0); Immature Granulocytes % 2.3 %; Immature Granulocytes Absolute 0.26 #; Lymphocytes # 0.6 10*3/uL (1.4-4.0); Lymphocytes % 5.3 % (21.2-54.2); Mean Corpuscular HGB Conc 32.1 GM/DL (32-36); Mean Corpuscular Volume 91.4 FL (87-102); Mean Platelet Volume 9.8 FL (9.6-12.0); Monocytes % 3.3 % (1.7-12.7); Neutrophils % 89.1 % (38.7-73.9); Platelet Count 176 T/CUMM (130-400); Red Blood Count 3.24 MC/CUMM (3.8-5.5); White Blood Count 11.5 T/CUMM (4-12)
[2020-02-18] MEDS: MEROPENEM 500 MG in SODIUM CHLORIDE 0.9% 100 ML IV SCH ×2 (11:05→22:20)
[2020-02-18] MEDS: DONEPEZIL 5 MG TABLET PO SCH (21:27)
[2020-02-18] MEDS: ATORVASTATIN 20 MG TABLET PO SCH (21:28)
[2020-02-18] MEDS: AZITHROMYCIN 250 MG TABLET PO SCH (21:29)
[2020-02-19] MEDS: methylPREDNISolone SOD SUC 125 MG/2 ML VIAL IV SCH (04:30)
[2020-02-19] MEDS: ALUMINUM/MAGNES/SIMETH MAX STR 30 ML UDCUP PO SCH ×4 (05:12→21:38)
[2020-02-19 06:33] LABS: Basophils % 0.1 % (0.0-0.8); Hematocrit 30.5 VOL% (42.0-52.0); Hemoglobin 9.6 GM/DL (14.0-18.0); Immature Granulocytes % 2.6 %; Immature Granulocytes Absolute 0.24 #; Lymphocytes # 0.5 10*3/uL (1.4-4.0); Lymphocytes % 5.5 % (21.2-54.2); Mean Corpuscular HGB Conc 31.5 GM/DL (32-36); Mean Corpuscular Volume 92.4 FL (87-102); Mean Platelet Volume 10.1 FL (9.6-12.0); Monocytes % 2.9 % (1.7-12.7); Neutrophils % 88.9 % (38.7-73.9); Platelet Count 172 T/CUMM (130-400); Red Cell Distribution Width 15.3 % (9.3-17.3); White Blood Count 9.2 T/CUMM (4-12)
[2020-02-19 07:09] LABS: Calcium 8.7 MG/DL (8.5-10.1); Osmolality,Calculated 298.8 MOS/KG (273-304)
[2020-02-19] MEDS ORDERED: NITROFURANTOIN MACRO/MONO 100 MG CAPSULE PO SCH (09:00)
[2020-02-19] MEDS: ZINC SULFATE 220 MG CAPSULE PO SCH (09:12)
[2020-02-19] MEDS: AMIODARONE 200 MG TABLET PO SCH ×2 (09:12→21:15)
[2020-02-19] MEDS: MEGESTROL 40 MG TABLET PO SCH ×2 (09:12→21:15)
[2020-02-19] MEDS: ASCORBIC ACID 500 MG TABLET PO SCH ×2 (09:13→21:17)
[2020-02-19] MEDS: DOCUSATE SODIUM 100 MG CAPSULE PO SCH ×2 (09:13→21:15)
[2020-02-19] MEDS: HYDROXYCHLOROQUINE 200 MG TABLET PO SCH ×2 (09:13→21:16)
[2020-02-19] MEDS: PANTOPRAZOLE 40 MG TABLET PO SCH ×2 (09:13→21:16)
[2020-02-19] MEDS: QUEtiapine 25 MG TABLET PO SCH ×2 (09:13→21:16)
[2020-02-19] MEDS: ASPIRIN EC 325 MG TABLET PO SCH (09:13)
[2020-02-19] MEDS: MEROPENEM 500 MG in SODIUM CHLORIDE 0.9% 100 ML IV SCH (11:44)
[2020-02-19] MEDS: LINEZOLID 600 MG TABLET PO SCH ×2 (11:45→21:17)
[2020-02-19] MEDS ORDERED: FUROSEMIDE 20 MG/2 ML VIAL IV STA (13:01)
[2020-02-19] MEDS ORDERED: FUROSEMIDE 20 MG/2 ML VIAL IV PRN (13:17)
[2020-02-19] MEDS: DONEPEZIL 5 MG TABLET PO SCH (21:14)
[2020-02-19] MEDS: ATORVASTATIN 20 MG TABLET PO SCH (21:15)
[2020-02-20] MEDS: MEROPENEM 500 MG in SODIUM CHLORIDE 0.9% 100 ML IV SCH ×3 (00:10→23:22)
[2020-02-20] MEDS: ALUMINUM/MAGNES/SIMETH MAX STR 30 ML UDCUP PO SCH ×3 (05:22→23:06)
[2020-02-20 05:55] LABS: Basophils % 0.2 % (0.0-0.8); Eosinophils % 0.1 % (0.00-10.9); Hematocrit 30.9 VOL% (42.0-52.0); Hemoglobin 9.8 GM/DL (14.0-18.0); Immature Granulocytes Absolute 0.51 #; Lymphocytes % 7.4 % (21.2-54.2); Mean Corpuscular HGB Conc 31.7 GM/DL (32-36); Mean Corpuscular Volume 91.4 FL (87-102); Mean Platelet Volume 10.2 FL (9.6-12.0); Monocytes % 9.8 % (1.7-12.7); NRBC # 0.02 10*3/uL; Neutrophils % 78.5 % (38.7-73.9); Platelet Count 179 T/CUMM (130-400); Red Blood Count 3.38 MC/CUMM (3.8-5.5); Red Cell Distribution Width 15.1 % (9.3-17.3); White Blood Count 12.8 T/CUMM (4-12)
[2020-02-20 06:20] LABS: Calcium 8.2 MG/DL (8.5-10.1); Osmolality,Calculated 303.5 MOS/KG (273-304)
[2020-02-20 06:21] LABS: Hypochromasia 1+; Lymphocytes 10 % (20-55); Microcytosis 1+; Polychromasia Slight; Segmented Neutrophils 85 % (50-85); Total Cells Counted 100
[2020-02-20 06:22] LABS: Ovalocytes Slight; Platelet Estimate Adequate; Target Cells Slight
[2020-02-20] MEDS: ASPIRIN EC 325 MG TABLET PO SCH (08:58)
[2020-02-20] MEDS: DOCUSATE SODIUM 100 MG CAPSULE PO SCH ×2 (08:58→20:21)
[2020-02-20] MEDS: FUROSEMIDE 40 MG/4 ML VIAL IV SCH (08:58)
[2020-02-20] MEDS: AMIODARONE 200 MG TABLET PO SCH ×2 (08:58→20:21)
[2020-02-20] MEDS: PANTOPRAZOLE 40 MG TABLET PO SCH ×2 (08:59→20:21)
[2020-02-20] MEDS: LINEZOLID 600 MG TABLET PO SCH ×2 (08:59→20:21)
[2020-02-20] MEDS: QUEtiapine 25 MG TABLET PO SCH ×2 (08:59→20:21)
[2020-02-20] MEDS: ASCORBIC ACID 500 MG TABLET PO SCH ×2 (08:59→20:21)
[2020-02-20] MEDS: MEGESTROL 40 MG TABLET PO SCH ×2 (08:59→20:21)
[2020-02-20] MEDS: DONEPEZIL 5 MG TABLET PO SCH (19:43)
[2020-02-20] MEDS: ATORVASTATIN 20 MG TABLET PO SCH (20:21)
[2020-02-21 06:06] LABS: Basophils % 0.3 % (0.0-0.8); Eosinophils # 0.4 10*3/uL (0.0-0.87); Eosinophils % 3.7 % (0.00-10.9); Hematocrit 32.2 VOL% (42.0-52.0); Hemoglobin 10.5 GM/DL (14.0-18.0); Immature Granulocytes % 4.4 %; Immature Granulocytes Absolute 0.51 #; Lymphocytes % 8.2 % (21.2-54.2); Mean Corpuscular HGB Conc 32.6 GM/DL (32-36); Mean Corpuscular Volume 89.7 FL (87-102); Mean Platelet Volume 10.7 FL (9.6-12.0); Monocytes % 9.5 % (1.7-12.7); Neutrophils % 73.9 % (38.7-73.9); Platelet Count 153 T/CUMM (130-400); Red Blood Count 3.59 MC/CUMM (3.8-5.5); White Blood Count 11.6 T/CUMM (4-12)
[2020-02-21 06:32] LABS: Eosinophils 3 % (0-10); Hypochromasia 1+; Lymphocytes 7 % (20-55); Microcytosis 1+; Ovalocytes Slight; Platelet Estimate Adequate; Segmented Neutrophils 78 % (50-85); Total Cells Counted 100
[2020-02-21] MEDS: ALUMINUM/MAGNES/SIMETH MAX STR 30 ML UDCUP PO SCH ×3 (06:39→23:55)
[2020-02-21] MEDS: ASCORBIC ACID 500 MG TABLET PO SCH ×2 (08:30→21:32)
[2020-02-21] MEDS: PANTOPRAZOLE 40 MG TABLET PO SCH ×2 (08:30→21:32)
[2020-02-21] MEDS: FUROSEMIDE 40 MG/4 ML VIAL IV SCH (08:30)
[2020-02-21] MEDS: AMIODARONE 200 MG TABLET PO SCH ×2 (08:30→21:32)
[2020-02-21] MEDS: LINEZOLID 600 MG TABLET PO SCH ×2 (08:30→21:32)
[2020-02-21] MEDS: DOCUSATE SODIUM 100 MG CAPSULE PO SCH ×2 (08:30→21:33)
[2020-02-21] MEDS: QUEtiapine 25 MG TABLET PO SCH ×2 (08:30→21:33)
[2020-02-21] MEDS: MEGESTROL 40 MG TABLET PO SCH ×2 (08:30→21:32)
[2020-02-21] MEDS: ASPIRIN EC 325 MG TABLET PO SCH (08:30)
[2020-02-21] MEDS: MEROPENEM 500 MG in SODIUM CHLORIDE 0.9% 100 ML IV SCH ×2 (11:44→23:54)
[2020-02-21] MEDS: ATORVASTATIN 20 MG TABLET PO SCH (21:32)
[2020-02-21] MEDS: DONEPEZIL 5 MG TABLET PO SCH (21:33)
[2020-02-21] MEDS: BISMUTH SUBSALICYLATE 30 ML/524 MG 240 ML/BOTTLE PO PRN (22:52)
[2020-02-22] MEDS: ALUMINUM/MAGNES/SIMETH MAX STR 30 ML UDCUP PO SCH ×2 (06:28→16:14)
[2020-02-22] MEDS: ASCORBIC ACID 500 MG TABLET PO SCH ×2 (11:12→21:46)
[2020-02-22] MEDS: LINEZOLID 600 MG TABLET PO SCH ×2 (11:12→21:47)
[2020-02-22] MEDS: MEGESTROL 40 MG TABLET PO SCH ×2 (11:12→21:47)
[2020-02-22] MEDS: ASPIRIN EC 325 MG TABLET PO SCH (11:12)
[2020-02-22] MEDS: AMIODARONE 200 MG TABLET PO SCH ×2 (11:13→21:53)
[2020-02-22] MEDS: PANTOPRAZOLE 40 MG TABLET PO SCH ×2 (11:13→21:47)
[2020-02-22] MEDS: DOCUSATE SODIUM 100 MG CAPSULE PO SCH ×2 (11:16→21:46)
[2020-02-22] MEDS: FUROSEMIDE 40 MG/4 ML VIAL IV SCH (11:17)
[2020-02-22] MEDS: MEROPENEM 500 MG in SODIUM CHLORIDE 0.9% 100 ML IV SCH (11:17)
[2020-02-22] MEDS: QUEtiapine 25 MG TABLET PO SCH ×2 (11:21→21:47)
[2020-02-22] MEDS: PIPERACILLIN/TAZOBACTAM 3,375 MG in SODIUM CHLORIDE 0.9% 100 ML IV SCH (16:13)
[2020-02-22] MEDS: metroNIDAZOLE INJ 500 MG in PREMIX 1 EACH IV SCH (21:45)
[2020-02-22] MEDS: ATORVASTATIN 20 MG TABLET PO SCH (21:47)
[2020-02-22] MEDS: DONEPEZIL 5 MG TABLET PO SCH (21:47)
[2020-02-23] MEDS: ALUMINUM/MAGNES/SIMETH MAX STR 30 ML UDCUP PO SCH ×5 (02:11→21:24)
[2020-02-23] MEDS: PIPERACILLIN/TAZOBACTAM 3,375 MG in SODIUM CHLORIDE 0.9% 100 ML IV SCH ×2 (02:12→12:19)
[2020-02-23] MEDS: metroNIDAZOLE INJ 500 MG in PREMIX 1 EACH IV SCH ×2 (05:58→16:25)
[2020-02-23] MEDS: FUROSEMIDE 40 MG/4 ML VIAL IV SCH (09:06)
[2020-02-23] MEDS: ASCORBIC ACID 500 MG TABLET PO SCH ×2 (09:07→21:24)
[2020-02-23] MEDS: QUEtiapine 25 MG TABLET PO SCH ×2 (09:07→21:24)
[2020-02-23] MEDS: DOCUSATE SODIUM 100 MG CAPSULE PO SCH ×2 (09:07→21:41)
[2020-02-23] MEDS: PANTOPRAZOLE 40 MG TABLET PO SCH ×2 (09:08→21:24)
[2020-02-23] MEDS: AMIODARONE 200 MG TABLET PO SCH ×2 (09:08→21:24)
[2020-02-23] MEDS: ASPIRIN EC 325 MG TABLET PO SCH (09:08)
[2020-02-23 09:09] LABS: Basophils % 0.1 % (0.0-0.8); Eosinophils # 0.7 10*3/uL (0.0-0.87); Hematocrit 33.2 VOL% (42.0-52.0); Hemoglobin 10.5 GM/DL (14.0-18.0); Immature Granulocytes % 2.1 %; Immature Granulocytes Absolute 0.25 #; Lymphocytes # 0.9 10*3/uL (1.4-4.0); Lymphocytes % 7.3 % (21.2-54.2); Mean Corpuscular HGB Conc 31.6 GM/DL (32-36); Mean Corpuscular Volume 92.2 FL (87-102); Mean Platelet Volume 10.3 FL (9.6-12.0); Monocytes % 5.9 % (1.7-12.7); Neutrophils % 78.6 % (38.7-73.9); Platelet Count 140 T/CUMM (130-400); White Blood Count 11.8 T/CUMM (4-12)
[2020-02-23] MEDS: MEGESTROL 40 MG TABLET PO SCH ×2 (09:15→21:24)
[2020-02-23] MEDS: LINEZOLID 600 MG TABLET PO SCH ×2 (09:15→21:24)
[2020-02-23 09:24] LABS: Calcium 8.3 MG/DL (8.5-10.1); Osmolality,Calculated 303.4 MOS/KG (273-304)
[2020-02-23] MEDS: DONEPEZIL 5 MG TABLET PO SCH (21:24)
[2020-02-23] MEDS: ATORVASTATIN 20 MG TABLET PO SCH (21:24)
[2020-02-24] MEDS: PIPERACILLIN/TAZOBACTAM 3,375 MG in SODIUM CHLORIDE 0.9% 100 ML IV SCH ×2 (02:01→12:53)
[2020-02-24] MEDS: ALUMINUM/MAGNES/SIMETH MAX STR 30 ML UDCUP PO SCH ×3 (05:42→21:03)
[2020-02-24] MEDS: metroNIDAZOLE INJ 500 MG in PREMIX 1 EACH IV SCH ×2 (05:53→16:27)
[2020-02-24] MEDS: FUROSEMIDE 40 MG/4 ML VIAL IV SCH (09:32)
[2020-02-24] MEDS: AMIODARONE 200 MG TABLET PO SCH ×2 (09:33→20:54)
[2020-02-24] MEDS: QUEtiapine 25 MG TABLET PO SCH ×2 (09:33→20:53)
[2020-02-24] MEDS: ASPIRIN EC 325 MG TABLET PO SCH (09:33)
[2020-02-24] MEDS: ASCORBIC ACID 500 MG TABLET PO SCH ×2 (09:33→20:53)
[2020-02-24] MEDS: MEGESTROL 40 MG TABLET PO SCH ×2 (09:33→20:54)
[2020-02-24] MEDS: PANTOPRAZOLE 40 MG TABLET PO SCH ×2 (09:33→20:54)
[2020-02-24] MEDS: DOCUSATE SODIUM 100 MG CAPSULE PO SCH ×2 (09:34→20:53)
[2020-02-24] MEDS: ATORVASTATIN 20 MG TABLET PO SCH (20:53)
[2020-02-24] MEDS: DONEPEZIL 5 MG TABLET PO SCH (20:54)
[2020-02-25] MEDS: PIPERACILLIN/TAZOBACTAM 3,375 MG in SODIUM CHLORIDE 0.9% 100 ML IV SCH ×2 (01:12→16:08)
[2020-02-25] MEDS: ALUMINUM/MAGNES/SIMETH MAX STR 30 ML UDCUP PO SCH ×3 (05:15→21:54)
[2020-02-25] MEDS: metroNIDAZOLE INJ 500 MG in PREMIX 1 EACH IV SCH ×2 (05:22→20:32)
[2020-02-25] MEDS: FUROSEMIDE 40 MG/4 ML VIAL IV SCH (09:37)
[2020-02-25] MEDS: PANTOPRAZOLE 40 MG TABLET PO SCH ×2 (09:38→20:31)
[2020-02-25] MEDS: MEGESTROL 40 MG TABLET PO SCH ×2 (09:38→20:31)
[2020-02-25] MEDS: DOCUSATE SODIUM 100 MG CAPSULE PO SCH ×2 (09:38→21:54)
[2020-02-25] MEDS: ASPIRIN EC 325 MG TABLET PO SCH (09:38)
[2020-02-25] MEDS: AMIODARONE 200 MG TABLET PO SCH ×2 (09:38→20:31)
[2020-02-25] MEDS: ASCORBIC ACID 500 MG TABLET PO SCH ×2 (09:38→20:31)
[2020-02-25] MEDS: QUEtiapine 25 MG TABLET PO SCH ×2 (09:38→20:31)
[2020-02-25] MEDS: BISMUTH SUBSALICYLATE 30 ML/524 MG 240 ML/BOTTLE PO PRN ×2 (15:23→21:43)
[2020-02-25] MEDS: DONEPEZIL 5 MG TABLET PO SCH (20:31)
[2020-02-25] MEDS: ATORVASTATIN 20 MG TABLET PO SCH (20:32)
[2020-02-26] MEDS: PIPERACILLIN/TAZOBACTAM 3,375 MG in SODIUM CHLORIDE 0.9% 100 ML IV SCH (02:08)
[2020-02-26] MEDS: ALUMINUM/MAGNES/SIMETH MAX STR 30 ML UDCUP PO SCH (05:40)
[2020-02-26] MEDS: DOCUSATE SODIUM 100 MG CAPSULE PO SCH (09:31)
[2020-02-26] MEDS: ASPIRIN EC 325 MG TABLET PO SCH (09:31)
[2020-02-26] MEDS: QUEtiapine 25 MG TABLET PO SCH (09:31)
[2020-02-26] MEDS: ASCORBIC ACID 500 MG TABLET PO SCH (09:31)
[2020-02-26] MEDS: PANTOPRAZOLE 40 MG TABLET PO SCH (09:31)
[2020-02-26] MEDS: MEGESTROL 40 MG TABLET PO SCH (09:32)
[2020-02-26] MEDS: AMIODARONE 200 MG TABLET PO SCH (09:32)
[2020-02-26] MEDS: FUROSEMIDE 40 MG/4 ML VIAL IV SCH (09:32)
[2020-02-26] MEDS: metroNIDAZOLE INJ 500 MG in PREMIX 1 EACH IV SCH (09:37)
[2020-02-26 12:23] VITALS: BP 102/62
== END 2020-02-26 12:28 | DRG 194 ==
LOC: N.ED 18:58 → N.EDINP 21:46 → N.ICU 23:55 → N.2E 02-16 13:50 → N.3E 02-21 19:59
PROVIDERS: ADMIT Family Medicine; ATTEND Family Medicine

== ENCOUNTER 2020-04-27 00:14 | Inpatient (IN) ==
[2020-04-27 00:44] LABS: Basophils # 0.1 10*3/uL (0.0-0.2); Basophils % 0.3 % (0.0-0.8); Eosinophils # 0.2 10*3/uL (0.0-0.87); Eosinophils % 1.3 % (0.00-10.9); Hematocrit 23.5 VOL% (42.0-52.0); Hemoglobin 7.4 GM/DL (14.0-18.0); Immature Granulocytes % 2.8 %; Immature Granulocytes Absolute 0.45 #; Lymphocytes # 1.6 10*3/uL (1.4-4.0); Lymphocytes % 9.8 % (21.2-54.2); Mean Corpuscular HGB Conc 31.5 GM/DL (32-36); Mean Corpuscular Volume 89.4 FL (87-102); Mean Platelet Volume 10.2 FL (9.6-12.0); Monocytes % 6.3 % (1.7-12.7); Neutrophils % 79.5 % (38.7-73.9); Platelet Count 277 T/CUMM (130-400); Red Blood Count 2.63 MC/CUMM (3.8-5.5); Red Cell Distribution Width 15.2 % (9.3-17.3); White Blood Count 15.8 T/CUMM (4-12)
[2020-04-27 01:01] LABS: INR 1.1; PT Patient Result 12.1 SECS (9.8-11.9)
[2020-04-27 01:19] LABS: Alanine Aminotransferase 15 U/L (16-61); Albumin 2.5 G/DL (3.4-5.0); Alkaline Phosphatase 57 U/L (45-117); Aspartate Amino Transferase 13 U/L (0-37); Bilirubin,Total < 0.39 MG/DL (0.2-1.0); Blood Urea Nitrogen 85 MG/DL (7-18); Calcium 8.4 MG/DL (8.5-10.1); Estimated Glom Filtration Rate 7 ML/MIN; Ferritin 1065.5 ng/ml (26-388); Glucose 136 MG/DL (74-106); Osmolality,Calculated 295.2 MOS/KG (273-304); Total Protein 7.4 G/DL (6.4-8.3)
[2020-04-27] MEDS ORDERED: PIPERACILLIN/TAZOBACTAM 3,375 MG in SODIUM CHLORIDE 0.9% 100 ML IV STA (02:09)
[2020-04-27] MEDS ORDERED: ONDANSETRON 4 MG/2 ML VIAL IV PRN (02:14)
[2020-04-27] MEDS ORDERED: ACETAMINOPHEN 325 MG TABLET PO PRN (02:14)
[2020-04-27 02:24] LABS: Apearance,Urine CLOUDY (Clear); Bilirubin,Urine Negative (Negative); Blood, Urine Negative (Negative); Glucose,Urine (UA) Negative (Negative); Ketones,Urine Negative (Negative); Nitrite,Urine Negative (Negative); Protein,Urine 30 MG/DL; Urine Specific Gravity 1.012 (1.001-1.035); Urine Urobilinogen < 2.0 EU/DL (0.2-1.0); WBC,Urine 917 /HPF (0-6)
[2020-04-27 02:25] LABS: Urine Color Yellow (Yellow)
[2020-04-27] MEDS: FUROSEMIDE 40 MG/4 ML VIAL IV SCH ×3 (03:16→20:33)
[2020-04-27 08:44] LABS: Basophils % 0.3 % (0.0-0.8); Eosinophils % 0.3 % (0.00-10.9); Hematocrit 23.3 VOL% (42.0-52.0); Hemoglobin 7.2 GM/DL (14.0-18.0); Immature Granulocytes Absolute 0.24 #; Mean Corpuscular HGB Conc 30.9 GM/DL (32-36); Mean Corpuscular Volume 89.3 FL (87-102); Mean Platelet Volume 9.9 FL (9.6-12.0); Monocytes % 7.3 % (1.7-12.7); Neutrophils % 82.1 % (38.7-73.9); Platelet Count 222 T/CUMM (130-400); Red Blood Count 2.61 MC/CUMM (3.8-5.5); Red Cell Distribution Width 15.2 % (9.3-17.3)
[2020-04-27] MEDS: METOPROLOL TARTRATE 25 MG TABLET PO SCH ×2 (08:55→20:33)
[2020-04-27] MEDS: ASCORBIC ACID 500 MG TABLET PO SCH ×2 (08:55→20:10)
[2020-04-27] MEDS: ASPIRIN EC 325 MG TABLET PO SCH (08:55)
[2020-04-27] MEDS: PANTOPRAZOLE 40 MG VIAL IV SCH (08:55)
[2020-04-27] MEDS: AMIODARONE 200 MG TABLET PO SCH ×2 (08:55→20:10)
[2020-04-27 09:08] LABS: Alanine Aminotransferase 16 U/L (16-61); Albumin 2.4 G/DL (3.4-5.0); Alkaline Phosphatase 55 U/L (45-117); Aspartate Amino Transferase 11 U/L (0-37); Bilirubin,Total < 0.39 MG/DL (0.2-1.0); Blood Urea Nitrogen 86 MG/DL (7-18); Calcium 8.2 MG/DL (8.5-10.1); Estimated Glom Filtration Rate 7 ML/MIN; Glucose 87 MG/DL (74-106); Osmolality,Calculated 297.8 MOS/KG (273-304); Total Protein 6.3 G/DL (6.4-8.3)
[2020-04-27] MEDS ORDERED: BISMUTH SUBSALICYLATE 30 ML/524 MG 240 ML/BOTTLE PO PRN (14:50)
[2020-04-27] MEDS ORDERED: SODIUM CHLORIDE 0.9% 1,000 ML IV PRN (14:54)
[2020-04-27] MEDS ORDERED: cefTRIAXone 1,000 MG VIAL IM SCH (15:30)
[2020-04-27] MEDS ORDERED: cefTRIAXone 1,000 MG in SYRINGE 1 EACH IV SCH (16:00)
[2020-04-27] MEDS: QUEtiapine 25 MG TABLET PO SCH (20:10)
[2020-04-27] MEDS: ATORVASTATIN 20 MG TABLET PO SCH (20:10)
[2020-04-27] MEDS: DONEPEZIL 5 MG TABLET PO SCH (20:10)
[2020-04-27] MEDS: PIPERACILLIN/TAZOBACTAM 3,375 MG in SODIUM CHLORIDE 0.9% 100 ML IV SCH (20:20)
[2020-04-27] MEDS ORDERED: FERROUS SULFATE 325 MG TABLET PO SCH (21:00)
[2020-04-28 05:53] LABS: Basophils # 0.1 10*3/uL (0.0-0.2); Basophils % 0.5 % (0.0-0.8); Eosinophils # 0.3 10*3/uL (0.0-0.87); Eosinophils % 2.6 % (0.00-10.9); Hematocrit 27.4 VOL% (42.0-52.0); Immature Granulocytes % 1.4 %; Immature Granulocytes Absolute 0.14 #; Lymphocytes # 0.7 10*3/uL (1.4-4.0); Lymphocytes % 6.7 % (21.2-54.2); Mean Corpuscular HGB Conc 32.8 GM/DL (32-36); Mean Corpuscular Volume 86.2 FL (87-102); Mean Platelet Volume 10.1 FL (9.6-12.0); Monocytes % 8.2 % (1.7-12.7); Neutrophils % 80.6 % (38.7-73.9); Platelet Count 186 T/CUMM (130-400); Red Blood Count 3.18 MC/CUMM (3.8-5.5); Red Cell Distribution Width 15.2 % (9.3-17.3); White Blood Count 9.8 T/CUMM (4-12)
[2020-04-28 06:11] LABS: Alanine Aminotransferase 14 U/L (16-61); Albumin 2.2 G/DL (3.4-5.0); Alkaline Phosphatase 50 U/L (45-117); Aspartate Amino Transferase 14 U/L (0-37); Blood Urea Nitrogen 86 MG/DL (7-18); Calcium 8.4 MG/DL (8.5-10.1); Estimated Glom Filtration Rate 7 ML/MIN; Glucose 75 MG/DL (74-106); HDL Cholesterol 49 MG/DL (40-60); Osmolality,Calculated 294.1 MOS/KG (273-304); Risk Ratio 1.57; Total Protein 6.5 G/DL (6.4-8.3); Triglycerides < 2 MG/DL (2-150); VLDL CHOLESTEROL 0.4 MG/DL
[2020-04-28] MEDS: ASCORBIC ACID 500 MG TABLET PO SCH ×2 (08:19→20:27)
[2020-04-28] MEDS: AMIODARONE 200 MG TABLET PO SCH ×2 (08:19→20:27)
[2020-04-28] MEDS: FUROSEMIDE 40 MG/4 ML VIAL IV SCH (08:19)
[2020-04-28] MEDS: PANTOPRAZOLE 40 MG VIAL IV SCH (08:19)
[2020-04-28] MEDS: FUROSEMIDE 80 MG TABLET PO SCH (08:19)
[2020-04-28] MEDS: METOPROLOL TARTRATE 25 MG TABLET PO SCH ×2 (08:19→20:56)
[2020-04-28] MEDS: ASPIRIN EC 325 MG TABLET PO SCH (08:19)
[2020-04-28] MEDS: PIPERACILLIN/TAZOBACTAM 3,375 MG in SODIUM CHLORIDE 0.9% 100 ML IV SCH ×2 (08:20→20:27)
[2020-04-28] MEDS: QUEtiapine 25 MG TABLET PO SCH ×2 (08:28→20:27)
[2020-04-28] MEDS ORDERED: ENOXAPARIN 30 MG/0.3 ML SYRINGE SUBCUT SCH (12:00)
[2020-04-28 14:33] LABS: Apearance,Urine Slightly Hazy (Clear); Bilirubin,Urine Negative (Negative); Blood, Urine Large mg/dL (Negative); Glucose,Urine (UA) Negative (Negative); Ketones,Urine Negative (Negative); Mucus,Urine Occasional /LPF (Occasional); Nitrite,Urine Negative (Negative); Protein,Urine 100 MG/DL; RBC,Urine 501 /HPF (0-4); Urine Color Yellow (Yellow); Urine Specific Gravity 1.013 (1.001-1.035); Urine Urobilinogen < 2.0 EU/DL (0.2-1.0); WBC,Urine 74 /HPF (0-6)
[2020-04-28] MEDS: DEXTROSE 5% NACL 0.45% 1,000 ML IV SCH (16:07)
[2020-04-28] MEDS: ATORVASTATIN 20 MG TABLET PO SCH (20:27)
[2020-04-28] MEDS: DONEPEZIL 5 MG TABLET PO SCH (20:27)
[2020-04-29 03:50] LABS: Basophils # 0.1 10*3/uL (0.0-0.2); Basophils % 0.5 % (0.0-0.8); Eosinophils # 0.4 10*3/uL (0.0-0.87); Eosinophils % 4.5 % (0.00-10.9); Hematocrit 27.5 VOL% (42.0-52.0); Hemoglobin 8.6 GM/DL (14.0-18.0); Immature Granulocytes % 1.3 %; Immature Granulocytes Absolute 0.12 #; Lymphocytes % 10.5 % (21.2-54.2); Mean Corpuscular HGB Conc 31.3 GM/DL (32-36); Mean Corpuscular Volume 88.7 FL (87-102); Mean Platelet Volume 10.2 FL (9.6-12.0); Monocytes % 9.1 % (1.7-12.7); Neutrophils % 74.1 % (38.7-73.9); Platelet Count 175 T/CUMM (130-400); Red Cell Distribution Width 15.7 % (9.3-17.3); White Blood Count 9.4 T/CUMM (4-12)
[2020-04-29 04:02] LABS: Bilirubin,Total 0.6 MG/DL (0.2-1.0); Calcium 8.2 MG/DL (8.5-10.1)
[2020-04-29] MEDS: DEXTROSE 5% NACL 0.45% 1,000 ML IV SCH (06:07)
[2020-04-29 07:27] LABS: SARS-CoV-2 Total Ab Interp Reactive
[2020-04-29] MEDS: PANTOPRAZOLE 40 MG VIAL IV SCH (09:14)
[2020-04-29] MEDS: ASPIRIN EC 325 MG TABLET PO SCH (09:15)
[2020-04-29] MEDS: ASCORBIC ACID 500 MG TABLET PO SCH ×2 (09:15→20:21)
[2020-04-29] MEDS: FUROSEMIDE 80 MG TABLET PO SCH (09:15)
[2020-04-29] MEDS: AMIODARONE 200 MG TABLET PO SCH ×2 (09:15→20:22)
[2020-04-29] MEDS: METOPROLOL TARTRATE 25 MG TABLET PO SCH ×2 (09:15→20:22)
[2020-04-29] MEDS: QUEtiapine 25 MG TABLET PO SCH ×2 (09:16→20:22)
[2020-04-29] MEDS: PIPERACILLIN/TAZOBACTAM 3,375 MG in SODIUM CHLORIDE 0.9% 100 ML IV SCH ×2 (09:17→20:29)
[2020-04-29] MEDS: HEPARIN 5,000 UNIT/1 ML VIAL SUBCUT SCH ×2 (12:04→17:22)
[2020-04-29 14:15] LABS: ABG HCO3 21.1 MMOL/L (20-26); ABG Oxygen Saturation 98.1 % (95-100); ABG PH 7.323 (7.35-7.45); ABG TCO2 20.3 MMOL/L (23-27); Pt O2 Delivery Device Venturi Mask
[2020-04-29] MEDS: DESITIN 4OZ/NYSTATIN 15 GRAM MIXTURE PASTE TOP SCH ×2 (14:25→20:23)
[2020-04-29] MEDS: LORazepam 0.5 MG TABLET PO PRN ×2 (15:09→19:15)
[2020-04-29] MEDS: ATORVASTATIN 20 MG TABLET PO SCH (20:21)
[2020-04-29] MEDS: DONEPEZIL 5 MG TABLET PO SCH (20:22)
[2020-04-30] MEDS: HEPARIN 5,000 UNIT/1 ML VIAL SUBCUT SCH ×3 (00:50→16:27)
[2020-04-30] MEDS: LORazepam 0.5 MG TABLET PO PRN ×3 (00:56→13:43)
[2020-04-30] MEDS: DEXTROSE 5% NACL 0.45% 1,000 ML IV SCH (04:16)
[2020-04-30] MEDS: QUEtiapine 25 MG TABLET PO SCH ×2 (08:20→21:38)
[2020-04-30] MEDS: ASPIRIN EC 325 MG TABLET PO SCH (08:20)
[2020-04-30] MEDS: FUROSEMIDE 80 MG TABLET PO SCH (08:21)
[2020-04-30] MEDS: PANTOPRAZOLE 40 MG VIAL IV SCH (08:21)
[2020-04-30] MEDS: AMIODARONE 200 MG TABLET PO SCH ×2 (08:21→21:38)
[2020-04-30] MEDS: ASCORBIC ACID 500 MG TABLET PO SCH ×2 (08:21→21:37)
[2020-04-30] MEDS: DESITIN 4OZ/NYSTATIN 15 GRAM MIXTURE PASTE TOP SCH ×2 (08:22→21:37)
[2020-04-30] MEDS: PIPERACILLIN/TAZOBACTAM 3,375 MG in SODIUM CHLORIDE 0.9% 100 ML IV SCH ×2 (08:22→21:34)
[2020-04-30] MEDS: METOPROLOL TARTRATE 25 MG TABLET PO SCH (10:23)
[2020-04-30 12:58] LABS: ABG Base Excess -4.5 MMOL/L (-2.5-2.5); ABG HCO3 20.6 MMOL/L (20-26); ABG Oxygen Saturation 91.7 % (95-100); ABG PCO2 47.4 MM HG (35-48); ABG PO2 71.3 MM HG (80-95); ABG TCO2 20.7 MMOL/L (23-27)
[2020-04-30] MEDS: DONEPEZIL 5 MG TABLET PO SCH (21:37)
[2020-04-30] MEDS: ATORVASTATIN 20 MG TABLET PO SCH (21:38)
[2020-05-01] MEDS: HEPARIN 5,000 UNIT/1 ML VIAL SUBCUT SCH ×3 (01:29→17:54)
[2020-05-01] MEDS: LORazepam 0.5 MG TABLET PO PRN (03:33)
[2020-05-01 06:28] LABS: Basophils % 0.3 % (0.0-0.8); Eosinophils # 0.1 10*3/uL (0.0-0.87); Eosinophils % 1.4 % (0.00-10.9); Hematocrit 26.3 VOL% (42.0-52.0); Hemoglobin 8.1 GM/DL (14.0-18.0); Immature Granulocytes % 1.4 %; Immature Granulocytes Absolute 0.14 #; Lymphocytes # 0.4 10*3/uL (1.4-4.0); Lymphocytes % 3.8 % (21.2-54.2); Mean Corpuscular HGB Conc 30.8 GM/DL (32-36); Mean Platelet Volume 9.6 FL (9.6-12.0); Monocytes % 6.4 % (1.7-12.7); Neutrophils % 86.7 % (38.7-73.9); Platelet Count 164 T/CUMM (130-400); Red Blood Count 2.89 MC/CUMM (3.8-5.5); Red Cell Distribution Width 15.7 % (9.3-17.3); White Blood Count 10.1 T/CUMM (4-12)
[2020-05-01 06:55] LABS: Eosinophils 1 % (0-10); Hypochromasia 1+; Lymphocytes 8 % (20-55); Microcytosis 1+; Ovalocytes Slight; Segmented Neutrophils 86 % (50-85); Total Cells Counted 100
[2020-05-01 06:56] LABS: Burr Cells Slight; Platelet Estimate Adequate
[2020-05-01 07:10] LABS: Calcium 8.6 MG/DL (8.5-10.1); Osmolality,Calculated 306.3 MOS/KG (273-304)
[2020-05-01] MEDS: ASPIRIN EC 325 MG TABLET PO SCH (09:40)
[2020-05-01] MEDS: AMIODARONE 200 MG TABLET PO SCH ×2 (09:41→22:00)
[2020-05-01] MEDS: ASCORBIC ACID 500 MG TABLET PO SCH ×2 (09:41→22:00)
[2020-05-01] MEDS: FUROSEMIDE 100 MG/10 ML VIAL IV SCH (09:41)
[2020-05-01] MEDS: QUEtiapine 25 MG TABLET PO SCH ×2 (09:41→22:00)
[2020-05-01] MEDS: PANTOPRAZOLE 40 MG VIAL IV SCH (09:42)
[2020-05-01] MEDS: METOPROLOL TARTRATE 25 MG TABLET PO SCH (09:42)
[2020-05-01] MEDS: DESITIN 4OZ/NYSTATIN 15 GRAM MIXTURE PASTE TOP SCH ×2 (09:42→22:00)
[2020-05-01] MEDS: PIPERACILLIN/TAZOBACTAM 3,375 MG in SODIUM CHLORIDE 0.9% 100 ML IV SCH ×2 (09:42→22:00)
[2020-05-01] MEDS: ATORVASTATIN 20 MG TABLET PO SCH (22:00)
[2020-05-01] MEDS: DONEPEZIL 5 MG TABLET PO SCH (22:00)
[2020-05-02] MEDS: HEPARIN 5,000 UNIT/1 ML VIAL SUBCUT SCH ×3 (00:29→17:42)
[2020-05-02] MEDS: FUROSEMIDE 100 MG/10 ML VIAL IV SCH (09:59)
[2020-05-02] MEDS: PIPERACILLIN/TAZOBACTAM 3,375 MG in SODIUM CHLORIDE 0.9% 100 ML IV SCH ×2 (09:59→21:07)
[2020-05-02] MEDS: PANTOPRAZOLE 40 MG VIAL IV SCH (09:59)
[2020-05-02] MEDS: DESITIN 4OZ/NYSTATIN 15 GRAM MIXTURE PASTE TOP SCH ×2 (10:00→20:07)
[2020-05-02] MEDS ORDERED: LIDOCAINE 1%/EPI INJ 20 ML VIAL ONE (11:42)
[2020-05-02] MEDS ORDERED: HEPARIN 5,000 UNIT/1 ML VIAL ONE (11:42)
[2020-05-02] MEDS ORDERED: BUPIVACAINE MPF 0.25% 30 ML VIAL ONE (11:42)
[2020-05-02] MEDS ORDERED: KETAMINE 500 MG/10 ML VIAL ONE (14:52)
[2020-05-02] MEDS ORDERED: DEXMEDETOMIDINE 200 MCG/2 ML VIAL ONE (14:53)
[2020-05-02 15:00] LABS: Hepatitis B Core IgM Quant 0.17 Index; Hepatitis B Surface Ag Quant < 0.10 Index; Hepatitis B Surface Ag Result Negative (Negative); Hepatitis C Virus Ab Quant 0.28 Index; Hepatitis C Virus Ab Result Negative (Negative)
[2020-05-02] MEDS: AMIODARONE 200 MG TABLET PO SCH ×2 (16:37→21:06)
[2020-05-02] MEDS: ASCORBIC ACID 500 MG TABLET PO SCH ×2 (16:37→20:07)
[2020-05-02] MEDS: ASPIRIN EC 325 MG TABLET PO SCH (16:37)
[2020-05-02] MEDS: QUEtiapine 25 MG TABLET PO SCH ×2 (16:37→22:00)
[2020-05-02] MEDS: METOPROLOL TARTRATE 25 MG TABLET PO SCH (16:38)
[2020-05-02] MEDS: ATORVASTATIN 20 MG TABLET PO SCH (20:06)
[2020-05-02] MEDS: DONEPEZIL 5 MG TABLET PO SCH (20:06)
[2020-05-03] MEDS: HEPARIN 5,000 UNIT/1 ML VIAL SUBCUT SCH ×3 (01:15→18:13)
[2020-05-03] MEDS: LORazepam 0.5 MG TABLET PO PRN (01:50)
[2020-05-03 06:57] LABS: Calcium 8.5 MG/DL (8.5-10.1)
[2020-05-03 07:36] LABS: Calcium 8.2 MG/DL (8.5-10.1)
[2020-05-03 08:10] LABS: Basophils # 0.1 10*3/uL (0.0-0.2); Basophils % 0.6 % (0.0-0.8); Eosinophils # 0.3 10*3/uL (0.0-0.87); Eosinophils % 3.7 % (0.00-10.9); Hematocrit 27.4 VOL% (42.0-52.0); Hemoglobin 8.3 GM/DL (14.0-18.0); Immature Granulocytes Absolute 0.08 #; Lymphocytes # 0.6 10*3/uL (1.4-4.0); Lymphocytes % 6.7 % (21.2-54.2); Mean Corpuscular HGB Conc 30.3 GM/DL (32-36); Mean Corpuscular Volume 92.6 FL (87-102); Mean Platelet Volume 10.2 FL (9.6-12.0); Monocytes % 7.6 % (1.7-12.7); Neutrophils % 80.4 % (38.7-73.9); Platelet Count 190 T/CUMM (130-400); Red Blood Count 2.96 MC/CUMM (3.8-5.5); White Blood Count 8.2 T/CUMM (4-12)
[2020-05-03] MEDS: ASPIRIN EC 325 MG TABLET PO SCH (10:06)
[2020-05-03] MEDS: ASCORBIC ACID 500 MG TABLET PO SCH ×2 (10:06→21:09)
[2020-05-03] MEDS: QUEtiapine 25 MG TABLET PO SCH ×2 (10:07→21:09)
[2020-05-03] MEDS: PANTOPRAZOLE 40 MG VIAL IV SCH (10:08)
[2020-05-03] MEDS: FUROSEMIDE 100 MG/10 ML VIAL IV SCH (10:08)
[2020-05-03] MEDS: PIPERACILLIN/TAZOBACTAM 3,375 MG in SODIUM CHLORIDE 0.9% 100 ML IV SCH ×2 (10:10→21:13)
[2020-05-03] MEDS: AMIODARONE 200 MG TABLET PO SCH ×2 (10:12→21:09)
[2020-05-03] MEDS: METOPROLOL TARTRATE 25 MG TABLET PO SCH (10:12)
[2020-05-03] MEDS: DESITIN 4OZ/NYSTATIN 15 GRAM MIXTURE PASTE TOP SCH ×2 (10:30→21:13)
[2020-05-03] MEDS ORDERED: HEPARIN 10,000 UNIT/10 ML VIAL IV SCH (16:15)
[2020-05-03] MEDS: DONEPEZIL 5 MG TABLET PO SCH (21:09)
[2020-05-03] MEDS: ATORVASTATIN 20 MG TABLET PO SCH (21:09)
[2020-05-04] MEDS: HEPARIN 5,000 UNIT/1 ML VIAL SUBCUT SCH ×3 (02:16→17:23)
[2020-05-04 06:45] LABS: Calcium 8.3 MG/DL (8.5-10.1); Osmolality,Calculated 288.1 MOS/KG (273-304)
[2020-05-04] MEDS: PANTOPRAZOLE 40 MG VIAL IV SCH (10:53)
[2020-05-04] MEDS: PIPERACILLIN/TAZOBACTAM 3,375 MG in SODIUM CHLORIDE 0.9% 100 ML IV SCH ×2 (10:57→21:02)
[2020-05-04] MEDS: FUROSEMIDE 100 MG/10 ML VIAL IV SCH (12:57)
[2020-05-04] MEDS: ASPIRIN EC 325 MG TABLET PO SCH (12:57)
[2020-05-04] MEDS: ASCORBIC ACID 500 MG TABLET PO SCH ×2 (12:57→20:37)
[2020-05-04] MEDS: AMIODARONE 200 MG TABLET PO SCH ×2 (12:57→20:37)
[2020-05-04] MEDS: QUEtiapine 25 MG TABLET PO SCH ×2 (12:57→20:37)
[2020-05-04] MEDS: METOPROLOL TARTRATE 25 MG TABLET PO SCH (12:58)
[2020-05-04] MEDS: DESITIN 4OZ/NYSTATIN 15 GRAM MIXTURE PASTE TOP SCH ×2 (12:58→20:37)
[2020-05-04] MEDS: DONEPEZIL 5 MG TABLET PO SCH (20:36)
[2020-05-04] MEDS: ATORVASTATIN 20 MG TABLET PO SCH (20:37)
[2020-05-05] MEDS: HEPARIN 5,000 UNIT/1 ML VIAL SUBCUT SCH ×4 (01:17→20:52)
[2020-05-05 07:03] LABS: Basophils % 0.6 % (0.0-0.8); Eosinophils # 0.3 10*3/uL (0.0-0.87); Hematocrit 25.9 VOL% (42.0-52.0); Hemoglobin 7.6 GM/DL (14.0-18.0); Immature Granulocytes % 0.9 %; Immature Granulocytes Absolute 0.06 #; Lymphocytes # 0.8 10*3/uL (1.4-4.0); Lymphocytes % 11.4 % (21.2-54.2); Mean Corpuscular HGB Conc 29.3 GM/DL (32-36); Mean Corpuscular Volume 93.2 FL (87-102); Mean Platelet Volume 9.8 FL (9.6-12.0); Monocytes % 10.1 % (1.7-12.7); Platelet Count 170 T/CUMM (130-400); Red Blood Count 2.78 MC/CUMM (3.8-5.5); Red Cell Distribution Width 15.9 % (9.3-17.3); White Blood Count 6.9 T/CUMM (4-12)
[2020-05-05 07:45] LABS: Bilirubin,Total 1.2 MG/DL (0.2-1.0); Calcium 8.6 MG/DL (8.5-10.1); Osmolality,Calculated 285.1 MOS/KG (273-304); Total Protein 6.8 G/DL (6.4-8.3)
[2020-05-05] MEDS: ASPIRIN EC 325 MG TABLET PO SCH (09:18)
[2020-05-05] MEDS: ASCORBIC ACID 500 MG TABLET PO SCH ×2 (09:18→20:51)
[2020-05-05] MEDS: AMIODARONE 200 MG TABLET PO SCH ×2 (09:19→20:52)
[2020-05-05] MEDS: PANTOPRAZOLE 40 MG VIAL IV SCH ×2 (09:19→09:27)
[2020-05-05] MEDS: QUEtiapine 25 MG TABLET PO SCH ×2 (09:19→20:51)
[2020-05-05] MEDS: FUROSEMIDE 100 MG/10 ML VIAL IV SCH ×2 (09:20→09:27)
[2020-05-05] MEDS: METOPROLOL TARTRATE 25 MG TABLET PO SCH (10:18)
[2020-05-05] MEDS: DESITIN 4OZ/NYSTATIN 15 GRAM MIXTURE PASTE TOP SCH ×2 (13:15→20:52)
[2020-05-05] MEDS: methylPREDNISolone SOD SUC 40 MG/1 ML VIAL IV SCH (19:01)
[2020-05-05] MEDS: BENZONATATE 100 MG CAPSULE PO SCH (19:01)
[2020-05-05] MEDS: ALBUTEROL/IPRATROPIUM 3 ML NEB RESP TX SCH (20:20)
[2020-05-05] MEDS: ATORVASTATIN 20 MG TABLET PO SCH (20:51)
[2020-05-05] MEDS: DONEPEZIL 5 MG TABLET PO SCH (20:51)
[2020-05-06] MEDS: BENZONATATE 100 MG CAPSULE PO SCH (00:03)
[2020-05-06 00:44] VITALS: BP 115/68
[2020-05-06] MEDS: methylPREDNISolone SOD SUC 40 MG/1 ML VIAL IV SCH (02:31)
[2020-05-06] MEDS: ALBUTEROL/IPRATROPIUM 3 ML NEB RESP TX SCH (02:46)
== END 2020-05-06 07:53 | disposition expired | DRG 673 ==
LOC: EDUNIT# → EDBD → N.ED 00:14 → N.EDINP 03:22 → N.CC 04:22 → N.2E 16:19 → N.TELEN 05-03 18:16
PROVIDERS: ADMIT Family Medicine; ATTEND Family Medicine